=== PATIENT | female | born 1950 | race Caucasian/White ===

== ENCOUNTER 2019-10-20 16:29 | Inpatient (IN) | payer MEDICARE ==
[2019-10-20] MEDS ORDERED: ACETAMINOPHEN TAB 325 MG TAB PO PRN (16:58)
[2019-10-20] MEDS ORDERED: HYDROmorphone 1 MG/ML 1 ML SYRINGE IVP PRN (16:58)
[2019-10-20] MEDS ORDERED: NALOXONE 0.4 MG/ML 1 ML VIAL IV PRN (16:58)
--- NOTE | 2019-10-20 16:58 | ED ---
Fall HPI - General Chief Complaint: Fall Stated Complaint: Hip fracture Time Seen by Provider: 10/20/19 16:31 Source: patient, EMS Mode of arrival: EMS Limitations: physical limitation - History of Present Illness Initial Comments: 69-year-old female presents emergency department as a transfer from [facility] for fall, right IT fracture. Patient states that she had a mechanical fall. Patient said no prior orthopedic surgeries. Patient did have labs, x- rays, CT head, , urinalysis and Rosa placed. Patient found to have an INR of 9 was given vitamin K. Patient has no active signs of bleeding. Patient states that her pain is controlled as long as she is not moving. - Related Data Allergies Allergy/AdvReac Type Severity Reaction Status Date / Time alprazolam [From Xanax] Allergy Hallucinati Verified 10/20/19 16:34 ons Review of Systems ROS Statement: Those systems with pertinent positive or pertinent negative responses have been documented in the HPI. ROS Other: All systems not noted in ROS Statement are negative. Past Medical History Past Medical History: COPD, Diabetes Mellitus, Hyperlipidemia, Hypertension, Myocardial Infarction ([place]), Pneumonia History of Any Multi-Drug Resistant Organisms: None Reported Past Surgical History: Cholecystectomy, Heart Catheterization With Stent, Hysterectomy Past Psychological History: Anxiety Smoking Status: Former smoker Past Alcohol Use History: None Reported Past Drug Use History: None Reported General Exam Limitations: no limitations General appearance: alert, in no apparent distress Head exam: Present: atraumatic, normocephalic, normal inspection Neck exam: Present: normal inspection. Absent: tenderness, meningismus, lymphadenopathy Respiratory exam: Present: normal lung sounds bilaterally. Absent: respiratory distress, wheezes, rales, rhonchi, stridor Cardiovascular Exam: Present: regular rate, normal rhythm, normal heart sounds. Absent: systolic murmur, diastolic murmur, rubs, gallop, clicks Extremities exam: Present: other (Right leg is rotated, shortened, pulses equal bilaterally) Neurological exam: Present: alert, oriented X3, CN II-XII intact Course Vital Signs 10/20/19 16:35 Temperature 98.3 F Pulse Rate 82 Respiratory 16 Rate Blood Pressure 126/76 O2 Sat by Pulse 90 L Oximetry Medical Decision Making - Medical Decision Making I did contact orthopedics for admission who declines admission advises patient to be admitted to medicine secondary to INR. Case discussed with Harriet Piña for [facility] who accepts admission with consult to orthopedics Disposition Clinical Impression: Fall, Fracture of right hip, Warfarin-induced coagulopathy Disposition: ADMITTED IP TO THIS [facility] Condition: Fair Referrals: Brant Baca MD [Primary Care Provider] - 1-2 days
[2019-10-20 17:22] LABS: Prothrombin Time 83.6 sec (9.0-12.0)
[2019-10-20 17:42] LABS: INR 8.5 (<1.2)
[2019-10-20] MEDS: HYDROmorphone 0.5 MG/0.5 ML SYRINGE IVP PRN (18:46)
[2019-10-20] MEDS: ATORVASTATIN 40 MG TAB PO SCH (20:53)
[2019-10-20] MEDS: METOPROLOL SUCCINATE (ER) 25 MG TAB.ER.24H PO SCH (20:53)
[2019-10-20] MEDS: GABAPENTIN 300 MG CAP PO SCH (20:53)
[2019-10-20] MEDS: HYDROcodone/APAP 5-325MG 1 EACH TAB PO PRN (21:01)
[2019-10-20] MEDS: INSULIN ASPART (NovoLOG) 100 UNIT/ML VIAL SQ SCH (21:48)
[2019-10-20 21:58] LABS: Glucose,Whole Blood 95 mg/dL (75-99)
[2019-10-20] MEDS ORDERED: PHYTONADIONE ORAL 5 MG/5 ML ORAL.SYRG PO STA (23:28)
[2019-10-20] MEDS ORDERED: ALBUTEROL NEBULIZED 2.5 MG/3 ML INHALATION PRN (23:41)
[2019-10-21 01:23] LABS: ALT 27 U/L (9-52); AST 24 U/L (14-36); African American GFR (CKD) >90 (>60 ml/min/1.73 sqM); Albumin 3.6 g/dL (3.5-5.0); Alkaline Phosphatase 92 U/L (38-126); Anion Gap 7 mmol/L; Blood Urea Nitrogen 13 mg/dL (7-17); Calcium 8.7 mg/dL (8.4-10.2); Carbon Dioxide 26 mmol/L (22-30); Chloride 106 mmol/L (98-107); Glucose 98 mg/dL (74-99); Non-African American GFR(CKD) >90 (>60 ml/min/1.73 sqM); Potassium 3.5 mmol/L (3.5-5.1); Sodium 139 mmol/L (137-145); Total Bilirubin 0.4 mg/dL (0.2-1.3); Total Protein 6.1 g/dL (6.3-8.2)
[2019-10-21 03:54] LABS: Appearance,Urine Clear (Clear); Bilirubin,Urine Negative (Negative); Blood,Urine Moderate (Negative); Color,Urine Yellow; Glucose,Urine (UA) Negative (Negative); Ketones,Urine Negative (Negative); Leukocyte Esterase,Urine Trace (Negative); Mucus,Urine Occasional /hpf; Nitrite,Urine Negative (Negative); Protein,Urine 1+ (Negative); RBC,Urine 163 /hpf (0-5); Specific Gravity,Urine 1.031 (1.001-1.035); Squamous Epithelial Cell,Urine 1 /hpf (0-4); WBC,Urine 9 /hpf (0-5)
[2019-10-21] MEDS: LEVOTHYROXINE 125 MCG TAB PO SCH (05:04)
[2019-10-21] MEDS: HYDROcodone/APAP 5-325MG 1 EACH TAB PO PRN ×5 (05:04→23:45)
[2019-10-21 06:57] LABS: Anisocytosis Slight; Basophils % (A) 0 %; Eosinophils # (A) 0.1 k/uL (0-0.7); Eosinophils % (A) 1 %; HCT 43.6 % (34.0-46.0); HGB 14.4 gm/dL (11.4-16.0); Lymphocytes # (A) 0.4 k/uL (1.0-4.8); Lymphocytes % (A) 6 %; MCH 27.4 pg (25.0-35.0); MCV 83.2 fL (80.0-100.0); Monocytes # (A) 0.3 k/uL (0-1.0); Monocytes % (A) 5 %; Neutrophils # (A) 6.4 k/uL (1.3-7.7); Neutrophils % (A) 88 %; Platelet Count 202 k/uL (150-450); Poikilocytosis Slight; RBC 5.24 m/uL (3.80-5.40); RDW 16.2 % (11.5-15.5); WBC 7.3 k/uL (3.8-10.6)
[2019-10-21 07:01] LABS: INR 4.4 (<1.2); Prothrombin Time 42.3 sec (9.0-12.0)
[2019-10-21 07:14] LABS: Glucose,Whole Blood 96 mg/dL (75-99)
[2019-10-21] MEDS: INSULIN ASPART (NovoLOG) 100 UNIT/ML VIAL SQ SCH ×4 (08:04→20:56)
[2019-10-21] MEDS: FLUTICASONE 110 MCG INHALER INHALATION SCH ×2 (08:34→20:42)
[2019-10-21] MEDS ORDERED: FENOFIBRATE 160 MG TAB PO SCH (09:00)
[2019-10-21] MEDS ORDERED: AMIODARONE 200 MG TAB PO SCH (09:00)
--- NOTE | 2019-10-21 09:35 | HP ---
HISTORY AND PHYSICAL DATE OF SERVICE: 10/20/2019. CHIEF COMPLAINTS: Fall and right hip pain and hip fracture. HISTORY OF PRESENT ILLNESS: This 69-year-old woman with a past medical history of multiple medical problems including history of CHF, COPD, diabetes, hypertension, hyperlipidemia, history of DJD, history of pneumonia, history of coronary artery disease/stent/ history of anxiety being followed by Dr. Baca in the outpatient setting apparently had a mechanical fall. The patient does not remember the exact incidence. The patient did not lose any consciousness at home. The patient feels like the patient is doing much more than she should be doing and the patient went to [facility] in [place] with right intertrochanteric femoral fracture. The the INR was found to be 9. Vitamin K IV was given. The patient transferred to [facility] for further evaluation and treatment. INR is 8.5 at this time. There is no history of fever, rigors. No history of headache, loss of consciousness. No chest pain, palpitations, hematochezia or melena at this time. The patient said the patient is taking Coumadin, but the patient is not following up regularly with periodic INRs. PAST MEDICAL HISTORY: History of CHF, COPD, diabetes, hypertension, hyperlipidemia, history of DJD, history of pneumonia, history of cholecystectomy, history of coronary artery disease/stent. MEDICATIONS: Home medications: 1. Levothyroxine 250 mcg p.o. Wednesday, Wednesday, , Wednesday. 2. Metformin 500 mg p.o. b.i.d. 3. Coumadin 7.5, Wednesday, Wednesday and 5 mg Wednesday, Wednesday, Wednesday, Wednesday. 4. Nba-Dur 300 mg p.o. b.i.d. 5. Zoloft 100 mg p.o. daily. 6. Omeprazole 40 mg p.o. daily. 7. Toprol-XL 25 mg q.h.s. 8. Zestril 2.5 mg daily. 9. Levothyroxine 125 mcg Wednesday, Wednesday, Wednesday. 10.Lopid 600 mg p.o. b.i.d. 11.Neurontin 300 mg p.o. b.i.d. 12.Lasix 20 mg p.o. daily. 13.Flovent 1 puff b.i.d. 14.Lipitor 40 mg q.h.s. 15.Cordarone 200 mg p.o. daily. 16.ProAir 2 puffs q.6h p.r.n. ALLERGIES: XANAX. FAMILY HISTORY: History of CHF, diabetes, myocardial infarction in the family. SOCIAL HISTORY: Previous history of smoking. No history of current smoking or alcohol intake. REVIEW OF SYSTEMS: ENT: Diminished hearing. Diminished vision. CARDIOVASCULAR as mentioned. RESPIRATORY: As mentioned earlier. GI no nausea or vomiting. no dysuria or hematuria. Nervous system: No numbness or weakness. Allergy: No asthma or hayfever. MUSCULOSKELETAL as mentioned earlier. HEMATOLOGY/ONCOLOGY: No history of anemia. ENDOCRINE: Diabetes and hypothyroidism. CONSTITUTIONAL: As mentioned earlier. DERMATOLOGY: Negative. RHEUMATOLOGY negative. PSYCHIATRY as mentioned earlier. PHYSICAL EXAM: Patient is alert, oriented x3. The pulse is 77. Blood pressure 158/78, respirations 16, temperature 99.3, pulse ox 93% on 2 L. HEENT is conjunctivae normal. Oral mucosa moist. NECK is no jugular venous distention. No carotid bruit. No lymph node enlargement. CARDIOVASCULAR system: S1, S2 muffled. Ejection systolic murmur. No S3, no S4. RESPIRATORY: Breath sounds diminished in the bases. No rhonchi. No crackles. ABDOMEN: Soft, nontender. No mass palpable. LEGS status post right hip fracture. NERVOUS SYSTEM: Higher functions as mentioned earlier. Moves all 4 limbs except the right hip because of the pain. SKIN: No ulcers, rashes or bleeding. JOINTS: No active deforming arthropathy. LYMPHATICS: No lymph nodes palpable in the neck, axillae or groin. LABS: Awaited. ASSESSMENT: 1. Status post fall and right hip intertrochanteric fracture. 2. Coumadin coagulopathy. 3. History of chronic obstructive pulmonary disease. 4. History of congestive heart failure ejection fraction unknown. 5. History of coronary artery disease stent. 6. Diabetes type 2. 7. Hypertension. 8. Hyperlipidemia. 9. History of myocardial infarction. 10.History of degenerative joint disease. 11.History of pneumonia. 12.History of cholecystectomy. 13.History of anxiety. 14.Remote history of nicotine dependence. 15.Obesity with body mass index 37. 16.Gait dysfunction. 17.FULL CODE. RECOMMENDATIONS AND DISCUSSION: In this 69-year-old woman who presented with multiple medical issues, at this time, I recommend to continue the current medications, management and symptomatic treatment. Otherwise, at this time, pain medications. DVT prophylaxis. I would also recommend a 2D echo and baseline chest x-ray as for baseline, but the patient appears to be clinically stable and I would recommend vitamin K 5 mg more p.o. daily PT/INR and once the PT/INR less than 2 and acceptable to Orthopedic surgery patient will be cleared for surgery. I would also recommend Cardiology evaluation as well. Otherwise, prognosis guarded. Once again, the patient is stable at this time. There are no signs of any fluid overload clinically and we will continue to monitor. The rest of medications will be continued and DVT prophylaxis also suggested. A copy of dictation being forwarded to Dr. Baca who is the primary physician. BILLIE / HELENA: [id number] /
[2019-10-21] MEDS: LISINOPRIL 2.5 MG TAB PO SCH (10:03)
[2019-10-21] MEDS: FUROSEMIDE 20 MG TAB PO SCH (10:14)
[2019-10-21] MEDS: SERTRALINE 100 MG TAB PO SCH (10:14)
[2019-10-21] MEDS: PANTOPRAZOLE 40 MG TABLET PO SCH (10:14)
[2019-10-21] MEDS: GABAPENTIN 300 MG CAP PO SCH ×2 (10:14→20:55)
[2019-10-21] MEDS: metFORMIN 500 MG TAB PO SCH ×2 (10:14→20:55)
[2019-10-21] MEDS: THEOPHYLLINE 24 HOUR 300 MG CAP.ER.24H PO SCH (10:15)
--- NOTE | 2019-10-21 10:32 | XR ---
EXAMINATION TYPE: XR chest 1V portable DATE OF EXAM: 10/21/2019 COMPARISON: Chest x-ray 10/20/2019 HISTORY: Congestive heart failure TECHNIQUE: Single frontal view of the chest is obtained. FINDINGS: Enlarged cardiac silhouette, less pronounced from comparative chest CT. Mild pulmonary vas cular congestion. No sizable pleural effusion or pneumothorax. IMPRESSION: Enlarged cardiac silhouette and pulmonary vascular congestion, correlate for clinical si gns of fluid overload. Findings are improved from chest radiograph performed yesterday.
[2019-10-21] MEDS ORDERED: PHYTONADIONE ORAL 5 MG/5 ML ORAL.SYRG PO STA (10:44)
--- NOTE | 2019-10-21 11:07 | P.CNOR ---
History of Present Illness - [facility] Consult date: 10/21/19 Consult reason: fracture History of present illness: Patient is a 69-year-old female seen at bedside this morning consultation for her right hip fracture. She was admitted through the emergency department yesterday as a transfer from [facility] after suffering a fall at home resulting in a right IT fracture. Patient states that she had a mechanical fall. Patient said no prior orthopedic surgeries. Patient did have labs, x- rays, CT head, urinalysis and Rosa placed. Patient was found to have an INR of 9 and was given vitamin K. Patient has no active signs of bleeding. She states she continues to have pain at the right hip as expected but her pain is controlled as long as she is not moving. She denies radicular symptoms including numbness or tingling. She has no calf pain. Review of Systems All systems: negative Constitutional: Denies chills, Denies fever Eyes: denies blurred vision, denies pain Ears, nose, mouth and throat: Denies headache, Denies sore throat Cardiovascular: Denies chest pain, Denies shortness of breath Respiratory: Denies cough Gastrointestinal: Denies abdominal pain, Denies diarrhea, Denies nausea, Denies vomiting Genitourinary: Denies dysuria, Denies hematuria Musculoskeletal: Denies myalgias Integumentary: Denies pruritus, Denies rash Neurological: Denies numbness, Denies weakness Psychiatric: Denies anxiety, Denies depression Endocrine: Denies fatigue, Denies weight change Past Medical History Past Medical History: Heart Failure, COPD, Diabetes Mellitus, Hyperlipidemia, H ypertension, Myocardial Infarction ([place]), Osteoarthritis (OA), Pneumonia Additional Past Medical History / Comment(s): Pneumonia 4x Last Myocardial Infarction Date:: 2012 History of Any Multi-Drug Resistant Organisms: None Reported Past Surgical History: Cholecystectomy, Heart Catheterization With Stent, Hysterectomy Additional Past Surgical History / Comment(s): uterus removed, still has ovaries, cyst removed from r breast, colonoscopy, ovarian cyst removed Date of Last Stent Placement:: 2012 Past Psychological History: Anxiety Smoking Status: Former smoker Past Alcohol Use History: None Reported Past Drug Use History: None Reported - Past Family History Mother Family Medical History: Congestive Heart Failure (CHF), Diabetes Mellitus, Myocardial Infarction ([place]) Additional Family Medical History / Comment(s): at 62 from [place], had 7 children Father Family Medical History: Cancer Additional Family Medical History / Comment(s): bladder and prostate cancer, at 49 from cancer Medications and Allergies Home Medications Medication Instructions Recorded Confirmed Type Albuterol Sulfate [Proair Hfa] 2 puff INHALATION RT-Q6H PRN 10/20/19 10/20/19 History Amiodarone [Cordarone] 200 mg PO DAILY 10/20/19 10/20/19 History Atorvastatin [Lipitor] 40 mg PO HS 10/20/19 10/20/19 History Fluticasone Propionate [Flovent 1 puff INHALATION RT-BID 10/20/19 10/20/19 History Diskus] Furosemide [Lasix] 20 mg PO DAILY 10/20/19 10/20/19 History Gabapentin [Neurontin] 300 mg PO BID 10/20/19 10/20/19 History Gemfibrozil [Lopid] 600 mg PO BID 10/20/19 10/20/19 History Levothyroxine Sodium 125 mcg PO MOWEFR 10/20/19 10/20/19 History Levothyroxine Sodium 250 mcg PO SUTUTHSA 10/20/19 10/20/19 History Lisinopril [Zestril] 2.5 mg PO DAILY 10/20/19 10/20/19 History Metoprolol Succinate [Toprol XL] 25 mg PO HS 10/20/19 10/20/19 History Omeprazole 40 mg PO DAILY 10/20/19 10/20/19 History Sertraline [Zoloft] 100 mg PO DAILY 10/20/19 10/20/19 History Theophylline 12 Hour [Nba-Dur] 300 mg PO BID 10/20/19 10/20/19 History Warfarin [Coumadin] 5 mg PO SUMOWEFR 10/20/19 10/20/19 History Warfarin [Coumadin] 7.5 mg PO TUTHSA 10/20/19 10/20/19 History metFORMIN HCL [Glucophage] 500 mg PO BID 10/20/19 10/20/19 History Allergies Allergy/AdvReac Type Severity Reaction Status Date / Time alprazolam [From Xanax] AdvReac Hallucinati Verified 10/20/19 17:45 ons Physical Examination Inspection of the right lower extremity shows a shortened externally rotated ri ght leg. There are no open wounds. There is no erythema. There is no deformity of the knee, ankle or foot. Range of motion of the hip is not tested due to the fracture. Neurovascular status is grossly intact with motor and sensation throughout the right lower extremity. She has painless range of motion of the knee, ankle and foot. Calf is soft and nontender. There is 2+ dorsalis pedis pulse and less than 2 second capillary refill present. Results X-rays of the pelvis and right hip show right intertrochanteric femur fracture. There is mild displacement, rotation/shortening. - Labs Labs: Abnormal Lab Results - Last 24 Hours (Table) 10/20/19 10/21/19 10/21/19 Range/Units 16:59 00:33 03:00 RDW (11.5-15.5) % Lymphocytes # (1.0-4.8) k/uL PT 83.6 H (9.0-12.0) sec INR 8.5 H* (<1.2) Total Protein 6.1 L (6.3-8.2) g/dL Urine Protein 1+ H (Negative) Urine Blood Moderate H (Negative) Ur Leukocyte Esterase Trace H (Negative) Urine RBC 163 H (0-5) /hpf Urine WBC 9 H (0-5) /hpf Urine Mucus Occasional H (None) /hpf 10/21/19 10/21/19 Range/Units 06:19 06:19 RDW 16.2 H (11.5-15.5) % Lymphocytes # 0.4 L (1.0-4.8) k/uL PT 42.3 H (9.0-12.0) sec INR 4.4 H (<1.2) Total Protein (6.3-8.2) g/dL Urine Protein (Negative) Urine Blood (Negative) Ur Leukocyte Esterase (Negative) Urine RBC (0-5) /hpf Urine WBC (0-5) /hpf Urine Mucus (None) /hpf H & H 10/21/19 Range/Units 06:19 Hgb 14.4 (11.4-16.0) gm/dL Hct 43.6 (34.0-46.0) % Coagulation 10/20/19 10/21/19 Range/Units 16:59 06:19 INR 8.5 H* 4.4 H (<1.2) Result Diagrams: 10/21/19 06:19 10/21/19 00:33 - Diagnostic results Hip x-ray: image reviewed Assessment and Plan (1) Fracture of right hip Narrative/Plan: Patient has multiple comorbidities including diabetes, CHF, CAD and coagulopathy. Her INR is 4.4 today. Plan will be to proceed with surgical intervention including a gamma nail for right intertrochanteric femur fracture. We will proceed when cleared by medicine and cardiology and her INR is at acceptable levels hopefully in the next 1-2 days. Continue pain management, medical management and DVT prophylaxis in the meantime. Current Visit: Yes Status: Acute Priority: Medium Code(s): S72.001A - FRACTURE OF UNSP PART OF NECK OF RIGHT FEMUR, INIT SNOMED Code(s): 586233549 Time with Patient: Less than 30
[2019-10-21 11:23] LABS: Glucose,Whole Blood 87 mg/dL (75-99)
[2019-10-21 12:50] LABS: Cholesterol 124 mg/dL (<200); HDL Cholesterol 43 mg/dL (40-60); LDL Cholesterol,Calculated 68 mg/dL (0-99); Triglycerides 65 mg/dL (<150)
--- NOTE | 2019-10-21 14:08 | ECHOF ---
Referral Reason:chf MEASUREMENTS -------- HEIGHT: 165.1 cm WEIGHT: 103.9 kg BP: IVSd: 1.2 cm (0.6 - 1.1) LVIDd: 5.7 cm (3.9 - 5.3) LVPWd: 1.5 cm (0.6 - 1.1) IVSs: 1.4 cm LVIDs: 4.7 cm LVPWs: 1.6 cm LA Diam: 3.6 cm (2.7 - 3.8) LAESV Index (A-L): 45.11 ml/m MV EXCURSION: 20.607 mm (> 18.000) MV EF SLOPE: 53 mm/s (70 - 150) EPSS: 0.6 cm MV E Ignacio: 0.84 m/s MV DecT: 225 ms MV A Ignacio: 0.53 m/s MV E/A Ratio: 1.59 RAP: 5.00 mmHg RVSP: 67.94 mmHg FINDINGS -------- Sinus rhythm. This was a techncally difficult study with suboptimal views, , Lumason utilized for enhancement of im ages. The left ventricular size is normal. There is mild concentric left ventricular hypertrophy. Overa ll left ventricular systolic function is mild-moderately impaired with, an EF between 40 - 45 %. Ba muna inferior LV wall motion is hypokinetic. Basal inferoseptal LV wall motion is hypokinetic. M id inferior LV wall motion is hypokinetic. Apical inferior LV wall motion is hypokinetic. The right ventricle is normal in size. LA is severely dilated >40 ml/m2 The right atrial size is normal. 5.0mg OF Lumason UTLIZED: 2 OR MORE WALL SEGMENTS NOT VISUALIZED. There is mild aortic valve sclerosis. There is no evidence of aortic regurgitation. Mild mitral annular calcification present. Moderate mitral regurgitation is present. [id number] tricuspid regurgitation present. There is moderate to severe pulmonary hypertensio n. The right ventricular systolic pressure, as measured by Doppler, is 67.94mmHg. Trace/mild (physiologic) pulmonic regurgitation. The aortic root size is normal. There is no pericardial effusion. CONCLUSIONS -------- 1. Sinus rhythm. 2. This was a techncally difficult study with suboptimal views, , Lumason utilized for enhancement of images. 3. The left ventricular size is normal. 4. There is mild concentric left ventricular hypertrophy. 5. Overall left ventricular systolic function is mild-moderately impaired with, an EF between 40 - 45 %. 6. Basal inferior LV wall motion is hypokinetic. 7. Basal inferoseptal LV wall motion is hypokinetic. 8. Mid inferior LV wall motion is hypokinetic. 9. Apical inferior LV wall motion is hypokinetic. 10. LA is severely dilated >40 ml/m2 11. 5.0mg OF Lumason UTLIZED: 2 OR MORE WALL SEGMENTS NOT VISUALIZED. 12. There is mild aortic valve sclerosis. 13. Mild mitral annular calcification present. 14. Moderate mitral regurgitation is present. 15. Dykf-it-ivriwfyi tricuspid regurgitation present. 16. There is moderate to severe pulmonary hypertension. 17. Trace/mild (physiologic) pulmonic regurgitation. 18. The aortic root size is normal. 19. There is no pericardial effusion. INTERIOR DESIGNER: Valerie Gray RDCS
[2019-10-21] MEDS ORDERED: FUROSEMIDE 10 MG/ML 4 ML VIAL IV STA (15:04)
[2019-10-21 17:13] LABS: Glucose,Whole Blood 110 mg/dL (75-99)
[2019-10-21] MEDS: HYDROmorphone 0.5 MG/0.5 ML SYRINGE IVP PRN (18:31)
--- NOTE | 2019-10-21 19:08 | PN ---
PROGRESS NOTE DATE OF SERVICE: 10/21/2019 This 69-year-old woman is admitted with right hip fracture also had Coumadin coagulopathy. After vitamin K today the INR is still elevated up to 4.4. Vitamin K of 5 mg has been recommended. The patient also has evidence of CHF. Cardiology following the patient also. Patient also has some microscopic hematuria. Orthopedic surgery is following the patient closely and tentatively planning surgery once the patient is stabilized. A chest x-ray showed no evidence of any signs of mild fluid overload at this time. PAST MEDICAL HISTORY: Reviewed. REVIEW OF SYSTEM: Cardiovascular as mentioned earlier. RESPIRATORY: As mentioned earlier. GI no nausea or vomiting. : No dysuria. CENTRAL NERVOUS SYSTEM: No numbness or weakness. CURRENT MEDICATIONS: Reviewed and include: 1. Tylenol 650 q.6h p.r.n. 2. [place] 5 mg q.4 p.r.n. 3. Aspirin 81 mg. 4. Lipitor. 5. Flomax. 6. Lasix 20 mg p.o. daily. 7. Neurontin 300 mg p.o. t.i.d. 8. Dilaudid. 9. NovoLog. 10.Synthroid. 11.Zestril. 12.Glucophage. 13.Toprol-XL. 14.Protonix. 15.Zoloft. 16.Nba-24. PHYSICAL EXAM: Patient is alert, oriented x3. Pulse 70. Blood pressure 105/60, respirations 16, temperature 98.7, and pulse ox 98% on 3 L. HEENT: Conjunctivae normal. Oral mucosa moist. NECK is no jugular venous distention. No carotid bruit. No lymph node enlargement. Cardiovascular system: S1, S2 muffled. RESPIRATORY: Breath sounds diminished in the bases. A few scattered rhonchi. No crackles. ABDOMEN: Soft, nontender. No mass palpable. LEGS status post hip fracture. NERVOUS SYSTEM: No focal deficits. LABS: At this time shows WBC 7.2, hemoglobin 14.4, and INR 4.4. BMP noted. UA noted. Lipids are normal. ASSESSMENT: 1. Status post fall and right hip intertrochanteric fracture. 2. Coumadin coagulopathy. 3. Possible congestive heart failure, acute exacerbation, minimal. 4. History of chronic obstructive pulmonary disease. 5. History of coronary artery disease/stent. 6. Diabetes mellitus type 2. 7. Hypertension. 8. Hyperlipidemia. 9. History of myocardial infarction. 10.History of degenerative joint disease. 11.History of pneumonia. 12.History of cholecystectomy. 13.History of anxiety. 14.Remote history of nicotine dependence. 15.Obesity with body mass index of 37. 16.Gait dysfunction. 17.FULL CODE. RECOMMENDATIONS AND DISCUSSION: I recommend to continue current medications, symptomatic treatment. Otherwise, I would recommend a dose of intravenous Lasix and continue to monitor. Otherwise, 2D echo has been ordered. Cardiology consultation has been sought. Guarded prognosis because of multiple complex medical issues, but however the patient is stable for surgery and medically cleared. Cardiology following the patient closely. Further recommendations to follow. MMODL / IJN: [id number] /
--- NOTE | 2019-10-21 20:29 | CONS ---
CONSULTATION Mrs. Ramirez is a 69-year-old female, patient of Dr. Elizondo, who fell and fractured her hip. She is scheduled to undergo surgical intervention. Cardiology consultation was requested for preoperative evaluation. The patient has a known history of coronary artery disease status post stenting 6 years ago down in [place]. 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 She is on chronic anticoagulation for what appears to be a DVT, although the patient is very vague about her history. She denies any symptoms of chest pain. She is active at home without any difficulty. Has no dyspnea on exertion. No dizziness. No palpitation. No syncope. No PND, orthopnea or significant peripheral edema. She has stopped smoking 6 years ago at the time of her event. Her coronary risk factors are remarkable with history of diabetes, hypertension, and hyperlipidemia. She is on amiodarone and it is unclear to me if that was down because of arrhythmia. REVIEW OF SYSTEMS: RESPIRATORY SYSTEM: She denies any recent wheezing or cough. No history of documented obstructive lung disease. GI SYSTEM: No recent GI bleeding. No peptic ulcer disease. SYSTEM: No dysuria or hematuria. NERVOUS SYSTEM: No stroke or seizure. PHYSICAL EXAMINATION: She is a 69-year-old female, alert, oriented, in no apparent distress. Blood pressure 105/60 with a heart rate in the 70s. HEAD: Normocephalic. EYES: Sclerae anicteric. NECK: Good carotid upstroke. No bruit or jugular venous distention. LUNGS: Clear to auscultation. HEART: Regular rhythm S1, S2. No S3. No rub with a systolic murmur. ABDOMEN: Soft, nontender. Positive bowel sounds. No organomegaly. EXTREMITIES: With evidence of rotation of the right lower extremity. No edema on the left side. LAB DATA: On presentation her INR was 8.5, hemoglobin of 14.4, BUN and creatinine 13 and 0.57. NT proBNP of 1110. Her INR today is 4.4. Her EKG reveals sinus mechanism with evidence of inferolateral wall myocardial infarction. IMPRESSION: 1. Status post fall and fracture of the hip with no syncopal episode. 2. History of coronary artery disease status post stenting 6 years ago with no evidence to suggest recurrent angina pectoris. 3. Coagulopathy. Patient is anticoagulated, unclear etiology. It is unclear to me if it is atrial fibrillation or DVT. 4. History of hypertension. 5. Hyperlipidemia. 6. Diabetes mellitus. 7. Prior history of smoking. RECOMMENDATION: From the cardiac standpoint, the patient has no evidence of angina pectoris or congestive heart failure. She is stable. I see no contraindication to upcoming surgical intervention. Her Coumadin is on hold. I will check her lipid profile and stop her fenofibrate. She will undergo an echocardiogram with Doppler. The indication for anticoagulation will need to be re-evaluated. I will check her thyroid function test and I will stop her amiodarone at this time. Thank you for this consult. We will follow with you. MMODL / IJN: [id number] /
[2019-10-21] MEDS: ATORVASTATIN 40 MG TAB PO SCH (20:55)
[2019-10-21] MEDS: METOPROLOL SUCCINATE (ER) 25 MG TAB.ER.24H PO SCH (20:55)
[2019-10-21 21:24] LABS: Glucose,Whole Blood 99 mg/dL (75-99)
[2019-10-22] MEDS: HYDROmorphone 0.5 MG/0.5 ML SYRINGE IVP PRN (04:21)
[2019-10-22] MEDS: LEVOTHYROXINE 125 MCG TAB PO SCH (05:22)
[2019-10-22 06:45] LABS: INR 1.2 (<1.2); Prothrombin Time 12.1 sec (9.0-12.0)
[2019-10-22] MEDS: INSULIN ASPART (NovoLOG) 100 UNIT/ML VIAL SQ SCH ×4 (07:28→20:03)
[2019-10-22] MEDS: FLUTICASONE 110 MCG INHALER INHALATION SCH ×2 (08:08→20:55)
[2019-10-22] MEDS: FUROSEMIDE 20 MG TAB PO SCH (08:40)
[2019-10-22] MEDS: metFORMIN 500 MG TAB PO SCH ×2 (08:41→20:03)
[2019-10-22] MEDS: PANTOPRAZOLE 40 MG TABLET PO SCH (08:41)
[2019-10-22] MEDS: SERTRALINE 100 MG TAB PO SCH (08:41)
[2019-10-22] MEDS: LISINOPRIL 2.5 MG TAB PO SCH (08:41)
[2019-10-22] MEDS: GABAPENTIN 300 MG CAP PO SCH ×2 (08:41→20:03)
[2019-10-22] MEDS: ASPIRIN 81 MG PO SCH (08:41)
[2019-10-22] MEDS: THEOPHYLLINE 24 HOUR 300 MG CAP.ER.24H PO SCH (08:41)
[2019-10-22 12:09] LABS: Glucose,Whole Blood 91 mg/dL (75-99)
--- NOTE | 2019-10-22 12:37 | PN ---
PROGRESS NOTE Mrs. Ramirez is a 69-year-old female with known history of coronary artery disease who presented with a fall and fractured hip. She is scheduled to undergo surgical intervention tomorrow. She denies any chest pain. This morning her breathing has been stable. She denies any dizziness or palpitation. She denies any nausea. She is status post stenting 6 years ago and there is a possibility that she has arrhythmia, although the patient is quite vague about the etiology. She has been in sinus mechanism yet she was on amiodarone. MEDICATION: At this time include aspirin 81 mg daily, Lipitor 40 mg daily, furosemide 20 mg daily, lisinopril 2.5 mg daily, metoprolol succinate 25 mg daily, metformin. PHYSICAL EXAMINATION: Blood pressure 117/70 with a heart rate in the 60s. LUNGS: Clear. HEART: Regular rhythm S1, S2. No S3 with systolic murmur. No diastolic murmur, no rub. ABDOMEN: Soft, nontender. EXTREMITIES: No edema. An echocardiogram performed yesterday revealed ejection fraction 40% to 45% with segmental wall motion abnormality involving the inferior wall consistent with prior inferior myocardial infarction. LAB DATA: Revealed an INR of 1.2. IMPRESSION: 1. Status post fall with fractured hip scheduled for surgical intervention. 2. History of coronary artery disease status post stenting. 3. Ischemic cardiomyopathy. 4. Hypertension. 5. Hyperlipidemia. 6. Diabetes mellitus. 7. Questionable atrial fibrillation, patient was anticoagulated and the reasoning is unclear. RECOMMENDATION: We will continue present therapy. She should be stable to proceed with surgical intervention tomorrow. We will try to obtain the prior workup from Dr. Aquino who is her hot bread baker to see the indication for the anticoagulation and the indication to resume it. MMODL / IJN: [id number] /
[2019-10-22] MEDS: HYDROcodone/APAP 5-325MG 1 EACH TAB PO PRN (16:41)
--- NOTE | 2019-10-22 16:51 | XR ---
EXAMINATION TYPE: XR chest 1V portable DATE OF EXAM: 10/22/2019 COMPARISON: Prior chest x-ray 10/21/2019 HISTORY: Congestive heart failure TECHNIQUE: Single frontal view of the chest is obtained. FINDINGS: Findings similar to prior exam. Heart is enlarged, patient is rotated in technique is apic al lordotic. Central vascularity and interstitium appear prominently. No evident pneumothorax or pleu ral effusion. Bones are stable. IMPRESSION: There may be a component of pulmonary venous hypertension and interstitial edema, findin gs are similar to prior exam.
[2019-10-22 17:10] LABS: Glucose,Whole Blood 85 mg/dL (75-99)
--- NOTE | 2019-10-22 18:32 | P.PN ---
Subjective Progress Note Date: 10/22/19 Principal diagnosis: Right IT hip fracture Patient is pleasant 69 year old female seen at bedside this morning. We are following her for a right IT hip fracture. Her INR has come down and she has been tentatively been cleared for surgery. She continues to have hip pain as expected. She has no new complaints. No new numbness or tingling. No calf pain. Objective - Vital Signs Vital signs: Vital Signs Temp 98.2 F 10/22/19 15:00 Pulse 65 10/22/19 15:00 Resp 18 10/22/19 15:00 BP 118/75 10/22/19 15:00 Pulse Ox 94 L 10/22/19 15:00 Intake & Output 10/21/19 10/22/19 10/22/19 18:59 06:59 18:59 Intake Total 400 100 250 Output Total 750 850 400 Balance -350 -750 -150 Intake: Oral 400 100 250 Output: Urine 750 850 400 Other: Voiding Method Indwelling Catheter Indwelling Catheter Indwelling Catheter - Exam Right hip and leg show a shortened externally rotated lower extremity. Hip ROM not tested. Neurovascular status grossly intact throughout lower extremity with motor and sensation. calf is SNT. 2+ DP pulse and less than 2 sec cap refill present. - Constitutional General appearance: Present: no acute distress - Labs CBC & Chem 7: 10/21/19 06:19 10/21/19 00:33 Labs: Abnormal Lab Results - Last 24 Hours (Table) 10/22/19 Range/Units 06:15 PT 12.1 H (9.0-12.0) sec INR 1.2 H (<1.2) Assessment and Plan (1) Fracture of right hip Narrative/Plan: Patient has been cleared for surgery and INR is improved to 1.2. Plan will be to proceed with surgical intervention including a gamma nail for right intertrochanteric femur fracture tomorrow, Wednesday afternoon. Continue pain management, medical management and DVT prophylaxis in the meantime. SHe is to be NPO after midnight. Procedure consent has been ordered Current Visit: Yes Status: Acute Priority: Medium Code(s): S72.001A - FRACTURE OF UNSP PART OF NECK OF RIGHT FEMUR, INIT SNOMED Code(s): 836990978 Time with Patient: Less than 30
--- NOTE | 2019-10-22 19:01 | PN ---
PROGRESS NOTE DATE OF SERVICE: 10/22/2019 This 69-year-old woman with a past medical history of multiple medical problems, admitted with a fall and right femur fracture. The patient is slated to have surgery tomorrow. The patient had Coumadin coagulopathy which is reversed at this time. No chest pain. No palpitations. No fever. The patient has no active CHF. EXAM: Alert and oriented x3. The pulse is 65, blood pressure 118/70, respiration 18, temp 98.2, pulse ox 94% on 5 L. HEENT: Conjunctivae normal. Oral mucosa moist. NECK: No jugular venous distention. No lymph node enlargement. CARDIOVASCULAR: S1, S2. RESPIRATORY: Diminished breath sounds at the bases. No rhonchi, no crackles. ABDOMEN: Soft, nontender. No mass palpable. LEGS: Status post fracture. NERVOUS SYSTEM: No focal deficits. LABS: At this time shows INR is 1.2. Other labs noted. ASSESSMENT: 1. Status post fall and right hip intertrochanteric fracture. 2. Coumadin coagulopathy, improved. 3. Congestive heart failure, acute exacerbation, minimal. 4. Chronic obstructive pulmonary disease. 5. History of coronary artery disease, stent. 6. Diabetes mellitus type 2. 7. Hypertension. 8. Hyperlipidemia. 9. History of myocardial infarction. 10.History of degenerative joint disease. 11.History of pneumonia. 12.History of cholecystectomy. 13.History of anxiety. 14.Remote history of nicotine dependence. 15.Obesity with body mass index of 37. 16.Gait dysfunction. 17.FULL CODE. RECOMMENDATIONS AND DISCUSSION: Recommend to continue current medications, continue symptomatic treatment. Otherwise, at this time I recommend repeat chest x-ray. Continue the rest of medications. The patient is cleared for surgery. Further recommendations to follow. MMODL / IJN: [id number] /
[2019-10-22] MEDS: ATORVASTATIN 40 MG TAB PO SCH (20:03)
[2019-10-22] MEDS: METOPROLOL SUCCINATE (ER) 25 MG TAB.ER.24H PO SCH (20:03)
[2019-10-22 20:20] LABS: Glucose,Whole Blood 86 mg/dL (75-99)
[2019-10-23] MEDS: HYDROcodone/APAP 5-325MG 1 EACH TAB PO PRN (05:42)
[2019-10-23] MEDS: LEVOTHYROXINE 125 MCG TAB PO SCH ×2 (05:44→19:51)
[2019-10-23 07:19] LABS: Glucose,Whole Blood 99 mg/dL (75-99)
[2019-10-23] MEDS: FLUTICASONE 110 MCG INHALER INHALATION SCH ×2 (07:38→20:47)
[2019-10-23 07:46] LABS: INR 1.1 (<1.2)
[2019-10-23 07:47] LABS: Prothrombin Time 11.4 sec (9.0-12.0)
[2019-10-23] MEDS: INSULIN ASPART (NovoLOG) 100 UNIT/ML VIAL SQ SCH ×4 (08:53→19:52)
[2019-10-23] MEDS: THEOPHYLLINE 24 HOUR 300 MG CAP.ER.24H PO SCH (09:28)
[2019-10-23] MEDS: GABAPENTIN 300 MG CAP PO SCH ×2 (09:28→19:50)
[2019-10-23] MEDS: SERTRALINE 100 MG TAB PO SCH (09:28)
[2019-10-23] MEDS: FUROSEMIDE 20 MG TAB PO SCH (09:28)
[2019-10-23] MEDS: LISINOPRIL 2.5 MG TAB PO SCH (09:29)
[2019-10-23] MEDS: metFORMIN 500 MG TAB PO SCH ×2 (09:29→19:49)
[2019-10-23] MEDS: ASPIRIN 81 MG PO SCH (09:29)
[2019-10-23] MEDS: PANTOPRAZOLE 40 MG TABLET PO SCH (09:29)
--- NOTE | 2019-10-23 09:49 | CDI ---
Documentation Clarification Form Date: 10/23/2019 9:43:50 AM From: Regi Gunter RN, CCDS Phone: [phone] Admit Date: 10/20/2019 5:07:00 PM Patient Name: Glenis Ramirez Visit Number: [id number] ATTENTION: The Clinical Documentation Specialists (CDI) and [facility] Coding Staff appreciate your assistance in clarifying documentation. Please respond to the clarification below the line at the bottom and electronically sign. The CDI & [facility] Coding staff will review the response and follow-up if needed. Please note: Queries are made part of the Legal Health Record. If you have any questions, please contact the author of this message via ITS. Dr. Any Rosales CHF is documented in your H&P and Progress Notes and requires further specificity. History/Risk Factors: CHF, possible atrial fib unsure as to why patient is being anticoagulated, DM2 Clinical Indicators: 10/22 Attending Progress Note: Congestive heart failure, acute exacerbation, minimal 10/22 Cardiology progress Note: Ischemic cardiomyopathy VS/Pulse OX: Temp 98.3, hr 82, RR 16, B/P 126/76, po2 90% 2l NC BNP: 1110 10/21 Echocardiogram Results: EF 40-45%, LA is severely dilated 10/22 Chest X Ray: "There may be a component of pulmonary venous hypertension and interstitial edema; findings are similar to prior exam." Treatment: Amioradarone 200 mg PO QD Lasix 20 mg PO QD Lasix 40 mg IVP x 1 dose 10/21 In your professional opinion, can you please clarify the acuity and type of CHF if known? Systolic Heart Failure: Acute Chronic Acute on Chronic Systolic & Diastolic Heart Failure: Acute Chronic Acute on Chronic Heart Failure Unable to Determine Other, please specify (Last Revision: February 2018) Systolic Heart Failure: Acute on Chronic MTDD
[2019-10-23 11:37] LABS: T4, Free (Free Thyroxine) 2.48 ng/dL (0.78-2.19)
[2019-10-23 12:16] LABS: Glucose,Whole Blood 91 mg/dL (75-99)
[2019-10-23] MEDS: FUROSEMIDE 10 MG/ML 4 ML VIAL IV SCH (13:25)
--- NOTE | 2019-10-23 13:55 | P.PN ---
Subjective Progress Note Date: 10/23/19 Principal diagnosis: This is a 69-year-old female who was lying in bed in no acute distress with no acute overnight issues. Patient was recently admitted for a fall and right femu r fracture and is being closely monitored. Patient is scheduled to have surgery this afternoon. Current INR is 1.1. Currently patient is requiring oxygen via nasal cannula at 4-5 L per nursing staff. Patient denies any chest pain, shortness of breath, or palpitations. Patient states that she has to use oxygen sometimes but is unsure of how much. Patient states that she does have a history of heart failure. IV Lasix will be ordered. Yesterday's chest x-ray shows that there may be a component of pulmonary venous hypertension and interstitial edema which is similar to previous x-ray. Will continue to monitor closely. REVIEW OF SYSTEMS: ENT: Reports diminished vision and hearing. CARDIOVASCULAR: No reports of chest pain or palpitations RESPIRATORY: No reports her shortness of breath or cough GI: No nausea, vomiting or diarrhea. : No dysuria or retention. NERVOUS SYSTEM: Reports generalized weakness. HEMATOLOGY/ONCOLOGY: No history of anemia. ENDOCRINE: Reports diabetes and hypothyroidism. CONSTITUTIONAL: As mentioned earlier. DERMATOLOGY: Negative. PSYCHIATRY: Cooperative and nonsuicidal Active Medications Acetaminophen (Tylenol Tab) 650 mg PO Q6HR PRN PRN Reason: Mild Pain or Fever > 100.5 Hydrocodone Bitart/Acetaminophen ([place] 5-325) 1 each PO Q4HR PRN PRN Reason: Moderate Pain Last Admin: 10/23/19 05:42 Dose: 1 each Documented by: Albuterol Sulfate (Ventolin Nebulized) 2 mg INHALATION RT-Q6H PRN PRN Reason: Shortness Of Breath Aspirin (Aspirin) 81 mg PO DAILY [facility] Last Admin: 10/23/19 09:29 Dose: 81 mg Documented by: Atorvastatin Calcium (Lipitor) 40 mg PO HS [facility] Last Admin: 10/22/19 20:03 Dose: 40 mg Documented by: Fluticasone Propionate (Flovent 110 Mcg Inhaler) 2 puff INHALATION RT-BID [facility] Last Admin: 10/23/19 07:38 Dose: 2 puff Documented by: Furosemide (Lasix) 40 mg IV DAILY [facility] Gabapentin (Neurontin) 300 mg PO BID [facility] Last Admin: 10/23/19 09:28 Dose: 300 mg Documented by: Hydromorphone HCl (Dilaudid) 0.5 mg IVP Q3HR PRN PRN Reason: Moderate Pain Last Admin: 10/22/19 04:21 Dose: 0.5 mg Documented by: Hydromorphone HCl (Dilaudid) 1 mg IVP Q3HR PRN PRN Reason: Severe Pain Insulin Aspart (Novolog) 0 unit SQ ACHS [facility]; Protocol Last Admin: 10/23/19 08:53 Dose: Not Given Documented by: Levothyroxine Sodium (Synthroid) 250 mcg PO SuTuThSa@0630 [facility] Last Admin: 10/22/19 05:22 Dose: 250 mcg Documented by: Levothyroxine Sodium (Synthroid) 125 mcg PO MoWeFr@30 [facility] Last Admin: 10/23/19 05:44 Dose: Not Given Documented by: Lisinopril (Zestril) 2.5 mg PO DAILY [facility] Last Admin: 10/23/19 09:29 Dose: 2.5 mg Documented by: Metformin HCl (Glucophage) 500 mg PO BID [facility] Last Admin: 10/23/19 09:29 Dose: Not Given Documented by: Metoprolol Succinate (Toprol Xl) 25 mg PO [facility] Last Admin: 10/22/19 20:03 Dose: 25 mg Documented by: Naloxone HCl (Narcan) 0.2 mg IV Q2M PRN PRN Reason: Opioid Reversal Pantoprazole Sodium (Protonix) 40 mg PO DAILY@0730 [facility] Last Admin: 10/23/19 09:29 Dose: 40 mg Documented by: Sertraline HCl (Zoloft) 100 mg PO DAILY [facility] Last Admin: 10/23/19 09:28 Dose: 100 mg Documented by: Theophylline (Nba-24) 600 mg PO DAILY [facility] Last Admin: 10/23/19 09:28 Dose: 600 mg Documented by: Objective - Vital Signs Vital signs: Vital Signs Temp 98.4 F 10/23/19 07:00 Pulse 77 10/23/19 08:00 Resp 14 10/23/19 08:00 BP 121/76 10/23/19 07:00 Pulse Ox 94 L 10/23/19 07:00 Intake & Output 10/22/19 10/23/19 10/23/19 18:59 06:59 18:59 Intake Total 250 Output Total 400 550 Balance -150 -550 Intake: Oral 250 Output: Urine 400 550 Other: Voiding Method Indwelling Catheter Indwelling Catheter Indwelling Catheter # Bowel Movements 2 - Exam Gen: This is a 69-year-old female lying in bed in no acute distress. Temp is 98.4F, pulse is 77, respirations are 14, blood pressure is 121/76, oxygen saturation is 94% on 5 L via nasal cannula. HEENT: Head is atraumatic, normocephalic. Pupils equal, round. Sclerae is anicteric. NECK: Supple. No JVD. No lymphadenopathy. No thyromegaly. LUNGS: Diminished breath sounds at the bases with no wheezes or rhonchi noted. No intercostal retractions. HEART: S1, S2 are muffled ABDOMEN: Soft. Bowel sounds are present. No masses. No tenderness. EXTREMITIES: No pedal edema. No calf tenderness. Right hip tenderness upon palpation NEUROLOGICAL: Patient is awake, alert and oriented x3. Cranial nerves 2 through 12 are grossly intact. - Labs CBC & Chem 7: 10/21/19 06:19 10/21/19 00:33 Labs: Abnormal Lab Results - Last 24 Hours (Table) 10/23/19 Range/Units 06:52 TSH 0.242 L (0.465-4.680) mIU/L Free T4 2.48 H (0.78-2.19) ng/dL Assessment and Plan Assessment: Status post fall and right hip intertrochanteric fracture Coumadin coagulopathy, improved Congestive heart failure, acute exacerbation, acute on chronic systolic heart failure, minimal Chronic obstructive pulmonary disease History of coronary artery disease, stent Diabetes mellitus type 2 Hypertension Hyperlipidemia and line history of myocardial infarction history of degenerative joint disease History of pneumonia History of cholecystectomy History of anxiety Remote history of nicotine dependence Obesity with body mass index of 37 Gait dysfunction Full code Recommendations and discussion: Recommend to continue current medications, management, and symptomatic treatment. Patient will be given a dose of IV Lasix 40 mg and will continue daily at this time. Discussed with the nursing staff about weaning the patient from oxygen as she is currently requiring 5 L via nasal cannula and normally does not wear any oxygen at home. Will continue to monitor closely. Will continue to follow closely with surgery. Patient is to have right hip surgery today. Further recommendations to follow. Case management and social work are following for discharge plans to rehab facility for PT/OT therapy upon discharge.
[2019-10-23] MEDS ORDERED: ONDANSETRON 4 MG/2 ML VIAL IVP ONE (14:19)
[2019-10-23] MEDS ORDERED: LIDOCAINE 1% 20 ML VIAL (10MG/ML) FOR IV START INTRADERMA PRN (14:19)
[2019-10-23] MEDS ORDERED: DEXAMETHASONE SOD PHOSPHATE 10 MG/ML 1 ML VIAL IV ONE (14:19)
--- NOTE | 2019-10-23 14:46 | P.PN ---
Subjective Progress Note Date: 10/23/19 Principal diagnosis: Right IT hip fracture Patient is pleasant 69 year old female seen at bedside this morning. We are following her for a right IT hip fracture. Her INR has come down and she has been been cleared for surgery. She continues to have hip pain as expected. She has no new complaints. No new numbness or tingling. No calf pain. Objective - Vital Signs Vital signs: Vital Signs Temp 98.4 F 10/23/19 07:00 Pulse 77 10/23/19 08:00 Resp 14 10/23/19 08:00 BP 121/76 10/23/19 07:00 Pulse Ox 94 L 10/23/19 07:00 Intake & Output 10/22/19 10/23/19 10/23/19 18:59 06:59 18:59 Intake Total 250 Output Total 400 550 Balance -150 -550 Intake: Oral 250 Output: Urine 400 550 Other: Voiding Method Indwelling Catheter Indwelling Catheter Indwelling Catheter # Bowel Movements 2 - Exam Right hip and leg show a shortened externally rotated lower extremity. Hip ROM not tested. Neurovascular status grossly intact throughout lower extremity with motor and sensation. calf is SNT. 2+ DP pulse and less than 2 sec cap refill present. - Constitutional General appearance: Present: no acute distress - Labs CBC & Chem 7: 10/21/19 06:19 10/21/19 00:33 Labs: Abnormal Lab Results - Last 24 Hours (Table) 10/23/19 Range/Units 06:52 TSH 0.242 L (0.465-4.680) mIU/L Free T4 2.48 H (0.78-2.19) ng/dL Assessment and Plan (1) Fracture of right hip Narrative/Plan: Patient has been cleared for surgery and INR is improved. Surgery time has changed and plan is to proceed with surgical intervention including a gamma nail for right intertrochanteric femur fracture tomorrow, Wednesday around 11 am. Continue pain management, medical management and DVT prophylaxis. She is to be NPO after midnight. Procedure consent has been ordered. She will need placement post op Current Visit: Yes Status: Acute Priority: Medium Code(s): S72.001A - FRACTURE OF UNSP PART OF NECK OF RIGHT FEMUR, INIT SNOMED Code(s): 541999472 Time with Patient: Less than 30
[2019-10-23 17:07] LABS: Glucose,Whole Blood 100 mg/dL (75-99)
[2019-10-23] MEDS: LACTATED RINGERS 1,000 ML IV SCH (19:44)
[2019-10-23] MEDS: METOPROLOL SUCCINATE (ER) 25 MG TAB.ER.24H PO SCH (19:49)
[2019-10-23] MEDS: ATORVASTATIN 40 MG TAB PO SCH (19:50)
[2019-10-23 19:53] LABS: Glucose,Whole Blood 97 mg/dL (75-99)
[2019-10-24] MEDS ORDERED: HYDROcodone/APAP 5-325MG 1 EACH TAB ONE (05:30)
[2019-10-24 07:03] LABS: Glucose,Whole Blood 92 mg/dL (75-99)
[2019-10-24] MEDS: FLUTICASONE 110 MCG INHALER INHALATION SCH ×2 (07:29→20:38)
[2019-10-24] MEDS: INSULIN ASPART (NovoLOG) 100 UNIT/ML VIAL SQ SCH ×4 (07:53→21:00)
[2019-10-24 09:49] LABS: African American GFR (CKD) >90 (>60 ml/min/1.73 sqM); Anion Gap 13 mmol/L; Basophils % (A) 0 %; Blood Urea Nitrogen 23 mg/dL (7-17); Calcium 8.9 mg/dL (8.4-10.2); Carbon Dioxide 26 mmol/L (22-30); Chloride 101 mmol/L (98-107); Eosinophils # (A) 0.1 k/uL (0-0.7); Eosinophils % (A) 1 %; Glucose 83 mg/dL (74-99); HCT 41.7 % (34.0-46.0); HGB 14.1 gm/dL (11.4-16.0); Lymphocytes # (A) 0.5 k/uL (1.0-4.8); Lymphocytes % (A) 6 %; MCH 27.8 pg (25.0-35.0); MCHC 33.7 g/dL (31.0-37.0); MCV 82.5 fL (80.0-100.0); Mean Platelet Volume 6.5; Monocytes # (A) 0.4 k/uL (0-1.0); Monocytes % (A) 6 %; Neutrophils # (A) 6.3 k/uL (1.3-7.7); Neutrophils % (A) 85 %; Non-African American GFR(CKD) >90 (>60 ml/min/1.73 sqM); Platelet Count 192 k/uL (150-450); Poikilocytosis Slight; Potassium 3.3 mmol/L (3.5-5.1); RBC 5.05 m/uL (3.80-5.40); RDW 15.9 % (11.5-15.5); Sodium 140 mmol/L (137-145); WBC 7.4 k/uL (3.8-10.6)
[2019-10-24] MEDS: FUROSEMIDE 10 MG/ML 4 ML VIAL IV SCH (10:00)
[2019-10-24] MEDS: ASPIRIN 81 MG PO SCH (10:01)
[2019-10-24] MEDS: LISINOPRIL 2.5 MG TAB PO SCH (10:01)
[2019-10-24] MEDS: THEOPHYLLINE 24 HOUR 300 MG CAP.ER.24H PO SCH (10:01)
[2019-10-24] MEDS: metFORMIN 500 MG TAB PO SCH ×2 (10:01→21:14)
[2019-10-24] MEDS: SERTRALINE 100 MG TAB PO SCH (10:01)
[2019-10-24] MEDS: GABAPENTIN 300 MG CAP PO SCH ×2 (10:01→21:14)
[2019-10-24] MEDS: PANTOPRAZOLE 40 MG TABLET PO SCH (10:01)
[2019-10-24] MEDS: LACTATED RINGERS 1,000 ML IV SCH ×2 (10:23→11:09)
[2019-10-24 10:27] LABS: Glucose,Whole Blood 91 mg/dL (75-99)
[2019-10-24] MEDS ORDERED: MIDAZOLAM 2 MG/2 ML VIAL ONE (11:03)
[2019-10-24] MEDS ORDERED: PHENYLEPHRINE-0.9% NACL SYG 1 MG/10 ML SYRINGE ONE (11:03)
[2019-10-24] MEDS ORDERED: ePHEDrine SULFATE/0.9% NACL/PF 50 MG/5 ML SYRINGE IV ONE (11:03)
[2019-10-24] MEDS ORDERED: PROPOFOL 10 MG/ML 20 ML VIAL IV ONE (11:03)
[2019-10-24] MEDS ORDERED: KETAMINE 10 MG/ML 20 ML VIAL ONE (11:03)
[2019-10-24] MEDS ORDERED: fentaNYL (PF) 50 MCG/ML 2 ML AMP ONE (11:03)
--- NOTE | 2019-10-24 11:08 | P.PN ---
Subjective This is a pleasant 69-year-old female seen and examined laying flat resting comfortably in bed with a human resources safety manager at the bedside. She was supposed have surgery on her hip yesterday, but was postponed until today. She denies chest pain, shortness of breath, dizziness or palpitations. Records reviewed from Dr. Kowalski's office. She has a history of paroxysmal atrial fibrillation, coronary artery disease in the setting of a STEMI and stenting of the circumflex/OM in May 2013 with a subtotal occlusion of the RCA, ischemic cardiomyopathy with EF 35-40%, ischemic limb injury status post cardiac catheterization in 2012, diabetes mellitus chronic systolic heart failure and COPD. Blood pressure today 144/72 heart rate 78 afebrile and maintaining oxygen saturation on room air. Laboratory data reviewed, WBC 7.4, hemoglobin 14.1, pl atelets 192, sodium 140, potassium 3.3, creatinine 0.63. Currently maintained on aspirin 81 mg daily, atorvastatin 40 mg daily, Lasix 40 mg IV daily, lisinopril 2.5 mg daily and Toprol 25 mg at bedtime. Echocardiogram obtained on this admission reveals impaired LV systolic function with ejection fraction 40- 45%, basal inferior, basal inferior septal, mid inferior and apical inferior wall motion hypokinesia, moderate mitral regurgitation, mild to moderate tricuspid regurgitation and moderate to severe pulmonary hypertension with an RVSP of 67 mmHg. GENERAL: Well-appearing, well-nourished and in no acute distress. NECK: Supple without JVD or thyromegaly. LUNGS: Breath sounds clear to auscultation bilaterally. Respiration equal and unlabored. No wheezes, rales or rhonchi. HEART: Regular rate and rhythm with systolic ejection murmur at the left sternal border, no rubs or gallops. S1 and S2 heard. EXTREMITIES: Normal range of motion, no edema. No clubbing or cyanosis. Peripheral pulses intact. ASSESSMENT Fall with hip fracture, scheduled for surgery today. Coagulopathy secondary to buttermaker helper anti-coagulation. INR yesterday 1.1. Paroxysmal atrial fibrillation, maintaining sinus mechanism throughout this admission. Amiodarone discontinued. Ischemic cardiomyopathy, EF 40-45% Chronic systolic heart failure, currently euvolemic clinically History of coronary artery disease in the setting of an acute NM s/p PCI Hypertension Dyslipidemia COPD Diabetes mellitus PLAN We will check her coverage for Eliquis 5 mg BID. Transition to oral lasix as she appears clinically euvolemic. Continue lisinopril, toprol, aspirin and atorvastatin as previously ordered. We will continue to follow and make recommendations accordingly. Nurse Practitioner note has been reviewed, I agree with a documented findings and plan of care. Patient was seen and examined. Objective - Vital Signs Vital signs: Vital Signs Temp 97.3 F L 10/24/19 10:20 Pulse 78 10/24/19 10:20 Resp 16 10/24/19 10:20 BP 144/72 10/24/19 10:20 Pulse Ox 92 L 10/24/19 10:20 Intake & Output 10/23/19 10/24/19 10/24/19 18:59 06:59 18:59 Output Total 1000 200 Balance -1000 -200 Output: Urine 1000 200 Other: Voiding Method Indwelling Catheter Indwelling Catheter Bedpan # Voids 1 - Labs CBC & Chem 7: 10/24/19 08:17 10/24/19 08:17 Labs: Abnormal Lab Results - Last 24 Hours (Table) 10/23/19 10/23/19 10/24/19 Range/Units 06:52 16:56 08:17 RDW 15.9 H (11.5-15.5) % Lymphocytes # 0.5 L (1.0-4.8) k/uL Potassium (3.5-5.1) mmol/L BUN (7-17) mg/dL POC Glucose (mg/dL) 100 H (75-99) mg/dL Free T4 2.48 H (0.78-2.19) ng/dL 10/24/19 Range/Units 08:17 RDW (11.5-15.5) % Lymphocytes # (1.0-4.8) k/uL Potassium 3.3 L (3.5-5.1) mmol/L BUN 23 H (7-17) mg/dL POC Glucose (mg/dL) (75-99) mg/dL Free T4 (0.78-2.19) ng/dL
[2019-10-24 11:13] LABS: Prothrombin Time 10.7 sec (9.0-12.0)
[2019-10-24] MEDS ORDERED: ceFAZolin 1,000 MG in SODIUM CHLORIDE 0.9% 1,000 ML IRRIGATION ONE (11:54)
[2019-10-24] MEDS ORDERED: traMADol 50 MG TAB PO PRN (12:34)
[2019-10-24] MEDS ORDERED: MAGNESIUM HYDROXIDE 2,400 MG/10 ML CUP PO PRN (12:34)
[2019-10-24] MEDS ORDERED: ONDANSETRON 4 MG/2 ML VIAL IVP PRN (12:34)
[2019-10-24] MEDS ORDERED: HYDROmorphone 0.5 MG/0.5 ML SYRINGE IVP PRN ×3 (12:34)
--- NOTE | 2019-10-24 12:41 | XR ---
EXAMINATION TYPE: XR Hip Complete RT, FL guidance operating room DATE OF EXAM: 10/24/2019 COMPARISON: NONE HISTORY: 69-year-old female postop IT nailing right hip FINDINGS: Intraoperative fluoroscopy demonstrating intertan nailing with hip screw fixation of the right hip. FLUOROSCOPY Fluoroscopy time of 58 seconds was used during intertrochanteric fracture fixation right hip. 2 imag e/s document/s the procedure. IMPRESSION: Intraoperative fluoroscopy as above.
[2019-10-24] MEDS ORDERED: LACTATED RINGERS 1,000 ML IV ONE (13:25)
--- NOTE | 2019-10-24 13:36 | XR ---
EXAMINATION TYPE: XR Hip Limited RT DATE OF EXAM: 10/24/2019 Comparison: None Clinical History: 69-year-old female Status post hip surgery, assess surgical alignment Findings: Skin paris along the right lateral aspect of the upper thigh. Antegrade intramedullary nail with sc rew fixation across the patient's. Alignment is anatomic. Scattered soft tissue air related to recent operation. Impression: Uncomplicated postoperative appearance intramedullary nail with hip screw fixation of the proximal ri ght femur.
--- NOTE | 2019-10-24 16:27 | P.PN ---
Subjective Progress Note Date: 10/24/19 Principal diagnosis: This is a 69-year-old female who was lying in bed in no acute distress with no acute overnight issues. Patient was recently admitted for a fall and right femu r fracture and is being closely monitored. Patient is scheduled to have surgery this afternoon. Current INR is 1.1. Currently patient is requiring oxygen via nasal cannula at 4-5 L per nursing staff. Patient denies any chest pain, shortness of breath, or palpitations. Patient states that she has to use oxygen sometimes but is unsure of how much. Patient states that she does have a history of heart failure. IV Lasix will be ordered. Yesterday's chest x-ray shows that there may be a component of pulmonary venous hypertension and interstitial edema which is similar to previous x-ray. Will continue to monitor closely. 10/24/2019 Patient is lying in bed in no acute distress and will be going to surgery today for right femur fracture and is being closely monitored. Cardiology is follo wing as well. No acute overnight issues. This morning patient was still on 5 L of oxygen via nasal cannula and discussed with the nursing staff about weaning off after surgery as patient normally does not require oxygen on a continued basis. Patient was being maintained on IV Lasix 40 mg daily and will transition to oral Lasix. Will continue to monitor closely. Guarded prognosis. Objective - Vital Signs Vital signs: Vital Signs Temp 98.4 F 10/24/19 13:40 Pulse 85 10/24/19 15:58 Resp 17 10/24/19 15:58 BP 123/69 10/24/19 15:10 Pulse Ox 94 L 10/24/19 13:40 Intake & Output 10/23/19 10/24/19 10/24/19 18:59 06:59 18:59 Intake Total 1261 Output Total 1000 200 300 Balance -1000 -200 961 Intake: IV 1051 Intake, IV Titration 210 Amount Lactated Ringers 1,000 ml 160 @ 20 mls/hr IV .Q24H [facility] Rx#:[id number] ceFAZolin 2 gm In Sodium 50 Chloride 0.9% 50 ml @ 100 mls/hr IVPB Q8HR [facility] Rx# :[id number] Output: Urine 1000 200 200 Estimated Blood Loss 100 Other: Voiding Method Indwelling Catheter Indwelling Catheter Bedpan # Voids 1 1 - Exam Gen: This is a 69-year-old female lying in bed in no acute distress. Temp is 97.3 F, pulse is 78, respirations are 16, blood pressure is 144/72, oxygen saturation is 92 % on room air. HEENT: Head is atraumatic, normocephalic. Pupils equal, round. Sclerae is anicteric. NECK: Supple. No JVD. No lymphadenopathy. No thyromegaly. LUNGS: Diminished breath sounds at the bases with no wheezes or rhonchi noted. No intercostal retractions. HEART: S1, S2 are muffled ABDOMEN: Soft. Bowel sounds are present. No masses. No tenderness. EXTREMITIES: No pedal edema. No calf tenderness. Right hip tenderness upon pa lpation NEUROLOGICAL: Patient is awake, alert and oriented x3. Cranial nerves 2 through 12 are grossly intact. - Labs CBC & Chem 7: 10/24/19 08:17 10/24/19 08:17 Labs: Abnormal Lab Results - Last 24 Hours (Table) 10/23/19 10/24/19 10/24/19 Range/Units 16:56 08:17 08:17 RDW 15.9 H (11.5-15.5) % Lymphocytes # 0.5 L (1.0-4.8) k/uL Potassium 3.3 L (3.5-5.1) mmol/L BUN 23 H (7-17) mg/dL POC Glucose (mg/dL) 100 H (75-99) mg/dL Assessment and Plan Assessment: Status post fall and right hip intertrochanteric fracture Coumadin coagulopathy, improved Congestive heart failure, acute exacerbation, acute on chronic systolic heart failure, minimal Chronic obstructive pulmonary disease History of coronary artery disease, stent Diabetes mellitus type 2 Hypertension Hyperlipidemia and line history of myocardial infarction history of degenerative joint disease History of pneumonia History of cholecystectomy History of anxiety Remote history of nicotine dependence Obesity with body mass index of 37 Gait dysfunction Full code Recommendations and discussion: Recommend to continue current medications, management, and symptomatic treatment. Cardiology is following. Patient will be going for surgery for right IT fracture. Will await orthopedic surgical report. Will continue to monitor closely. Will continue to follow closely with surgery. Further recommendations to follow. Case management and social work are following for discharge plans to [facility] rehab facility for PT/OT therapy upon discharge.
[2019-10-24] MEDS: HYDROmorphone 0.5 MG/0.5 ML SYRINGE IVP PRN (16:45)
[2019-10-24 17:05] LABS: Glucose,Whole Blood 96 mg/dL (75-99)
--- NOTE | 2019-10-24 20:16 | OP ---
OPERATIVE REPORT DATE OF PROCEDURE: 10/24/2019. PREOPERATIVE DIAGNOSIS: Right intertrochanteric hip fracture. POSTOP DIAGNOSIS: Right intertrochanteric hip fracture. PROCEDURE PERFORMED: Right intramedullary hip screw fixation for right intertrochanteric hip fracture. SURGEON: Raman Urbano M.D. CALL WORKER: Jose L GIORDANO. ANESTHESIA: Spinal with sedation. ESTIMATED BLOOD LOSS: 100 mL. TOURNIQUET: None. DRAINS: None. COMPLICATIONS: None apparent. DISPOSITION: Postanesthesia care unit. INDICATIONS: Glenis is a very pleasant 69-year-old female who fell in the evening of October 20. She has originally was taken to [facility]. She has multiple medical comorbidities including coronary artery disease, congestive heart failure, diabetes mellitus, and her INR was 9. She was then transferred to [facility] for higher level of care. She was admitted to the medical service. She has subsequently been cleared by the medical service, which includes a cardiac workup and lowering her INR. Recommendation was for intramedullary hip screw fixation for her right intertrochanteric hip fracture. The risks of procedure were discussed with her and her family in detail. These risks include, but are not limited to risk of infection, nerve damage, bleeding, pain, and a small risk of deep vein thrombosis which could lead to fatal pulmonary embolism. Further risks include possibility for periarticular fracture, failure of the fracture to heal and failure of the implant. All of her and her family's questions were answered to their satisfaction. Appropriate informed consent was obtained. DESCRIPTION OF THE PROCEDURE: The patient identified in preop holding area. Surgical sites marked by both the patient and myself. She was then transferred to the operative suite. She was placed supine on the operative table. Spinal anesthetic was then administered and dosed per the anesthesia without apparent complication. She was then placed onto the fracture table well-padded in preparation for surgery. Fluoroscopy was brought in. The fracture was reduced with traction and rotation. This was confirmed with fluoroscopic imaging. The patient's right lower extremity was then prepped and draped in the usual sterile fashion. Standard surgical pause undertaken to ensure that we were operating on the correct site and that appropriate preoperative antibiotics were given. All staff were in agreement and we proceeded. The tip of greater trochanter was then identified. An approximate 3 cm incision starting at the level of the tip of the greater trochanter and extending proximally in line with the shaft of the femur was then made. Dissection was then carried down sharply to the tensor fascia. The tensor fascia was then incised in line with the skin incision. This gave me good access to the tip of the greater trochanter. The curved awl was then placed on the medial aspect of the tip of the greater trochanter. The threaded guide pin was then advanced down the center of the femur starting at the medial aspect of the tip of the greater trochanter. Placement of the threaded guide pin was confirmed with fluoroscopic imaging. I then proceeded to utilize the starting drill. The threaded guide pin was then removed and a ball-tipped guidewire was then placed down the shaft of the femur. Again, its proper placement was confirmed with fluoroscopic imaging. I then reamed the femoral shaft. I started with a 9 mm reamer and incrementally increased up to a 13 mm reamer. I then had the [place] service liaison representative open a Soheila gamma nail, 180 mm x 11 mm x 125 degrees. This was opened and assembled on the back table by the surgical processor. The gamma nail was then inserted over the ball-tipped guidewire. The ball-tipped guidewire was then removed. I then proceeded with placement, placing the intramedullary hip screw with the hip screw. A second small stab incision was made on the lateral thigh. The threaded guide pin was then placed through the nail into the center of the femoral head on both AP and lateral views. The tip-apex distance was appropriate. This was confirmed with both AP and lateral views. I then measured 100 mm. The cannulated drill was then set to 100 mm. The threaded guide pin was then over drilled with the cannulated drill. I then had the service liaison representative open a 10 mm x 100 mm partially-threaded hip screw. This was inserted over the threaded guide pin. This was placed deep into the center of the femoral head on both AP and lateral views. The tip-apex distance was appropriate. The screw had a very good purchase in bone. I then proceeded to compress the fracture. Once that was done, I then placed the set screw. The set screw was tightened fully and then backed off 1/4 turn to allow for compression at the fracture site. I then proceeded to place the distal interlocking screw. A 3rd small stab incision was made on the lateral thigh. A 37.5 x 5 mm distal static locking screw was then placed utilizing standard technique. The tip placement was confirmed through the nail of appropriate length utilizing fluoroscopic imaging. At this point in time, no further work was deemed necessary. Final AP and lateral views of the construct were taken. The intramedullary nail was indeed inside the femur. The hip screw was of appropriate length and it was placed deep in the center of the femoral head. The tip-apex distance was appropriate. The set screw was through the nail and was of appropriate length as well. At this point in time, no further work was deemed necessary. The wounds were thoroughly irrigated. The tensor fascia was closed with 0-Vicryl interrupted suture. The subcutaneous tissue closed with 2-0 Vicryl interrupted suture and the skin was closed with stainless steel paris. Sterile compressive dressing was then applied. All sponge and needle counts were deemed correct prior to closure. The patient tolerated procedure without apparent complication. She was transferred to the recovery room in stable condition. MMODL / IJN: [id number] /
[2019-10-24 20:34] LABS: Glucose,Whole Blood 111 mg/dL (75-99)
[2019-10-24] MEDS: ATORVASTATIN 40 MG TAB PO SCH (21:14)
[2019-10-24] MEDS: METOPROLOL SUCCINATE (ER) 25 MG TAB.ER.24H PO SCH (21:14)
[2019-10-24] MEDS: HYDROcodone/APAP 7.5-325MG 1 EACH TAB PO PRN (21:15)
[2019-10-24] MEDS: SENNOSIDES-DOCUSATE SODIUM 1 EACH TAB PO SCH (21:25)
[2019-10-25] MEDS: HYDROcodone/APAP 7.5-325MG 1 EACH TAB PO PRN ×2 (03:53→10:49)
[2019-10-25] MEDS: LEVOTHYROXINE 125 MCG TAB PO SCH ×2 (03:53→03:55)
[2019-10-25 07:18] LABS: Anisocytosis Slight; Basophils % (A) 1 %; Eosinophils # (A) 0.2 k/uL (0-0.7); Eosinophils % (A) 3 %; HCT 41.1 % (34.0-46.0); HGB 13.7 gm/dL (11.4-16.0); Lymphocytes # (A) 0.3 k/uL (1.0-4.8); Lymphocytes % (A) 5 %; MCH 27.8 pg (25.0-35.0); MCHC 33.5 g/dL (31.0-37.0); MCV 83.1 fL (80.0-100.0); Mean Platelet Volume 6.6; Monocytes # (A) 0.4 k/uL (0-1.0); Monocytes % (A) 6 %; Neutrophils # (A) 5.5 k/uL (1.3-7.7); Neutrophils % (A) 84 %; Platelet Count 180 k/uL (150-450); Poikilocytosis Slight; RBC 4.94 m/uL (3.80-5.40); WBC 6.6 k/uL (3.8-10.6)
[2019-10-25 07:22] LABS: Glucose,Whole Blood 98 mg/dL (75-99)
[2019-10-25] MEDS: INSULIN ASPART (NovoLOG) 100 UNIT/ML VIAL SQ SCH ×4 (07:25→20:26)
[2019-10-25] MEDS: FLUTICASONE 110 MCG INHALER INHALATION SCH ×2 (07:37→19:58)
--- NOTE | 2019-10-25 10:26 | P.PN ---
Subjective Progress Note Date: 10/25/19 Principal diagnosis: Right IT hip fracture Patient is seen at bedside this morning. She is postop day #1 from gamma nail for right IT fracture. She has pain at the surgical site as expected but denies any new complaints. She denies numbness, tingling or calf pain. Review of s ystems is negative for fever, chills, chest pain, shortness of breath or other Objective - Vital Signs Vital signs: Vital Signs Temp 98.3 F 10/25/19 07:46 Pulse 75 10/25/19 07:46 Resp 16 10/25/19 07:46 BP 114/70 10/25/19 07:46 Pulse Ox 90 L 10/25/19 07:46 Intake & Output 10/24/19 10/25/19 10/25/19 18:59 06:59 18:59 Intake Total 1261 Output Total 300 300 Balance 961 -300 Intake: IV 1051 Intake, IV Titration 210 Amount Lactated Ringers 1,000 ml 160 @ 20 mls/hr IV .Q24H [facility] Rx#:[id number] ceFAZolin 2 gm In Sodium 50 Chloride 0.9% 50 ml @ 100 mls/hr IVPB Q8HR [facility] Rx# :[id number] Output: Urine 200 300 Estimated Blood Loss 100 Other: Voiding Method Bedpan Indwelling Catheter Indwelling Catheter # Voids 1 1 - Exam Inspection reveals a benign surgical wound. There is no active bleeding or drainage. Neurovascular status is intact throughout the lower extremity with motor and sensation fully intact. Calf is soft and nontender. 2+ dorsalis ped is pulse and less than 2 second cap refill is present. - Constitutional General appearance: Present: no acute distress - Labs CBC & Chem 7: 10/25/19 06:45 10/24/19 08:17 Labs: Abnormal Lab Results - Last 24 Hours (Table) 10/24/19 10/25/19 Range/Units 20:31 06:45 RDW 16.0 H (11.5-15.5) % Lymphocytes # 0.3 L (1.0-4.8) k/uL POC Glucose (mg/dL) 111 H (75-99) mg/dL Assessment and Plan (1) Fracture of right hip Narrative/Plan: She will continue with routine postop orthopedic protocol including pain management, wound care, PT, DVT prophylaxis and medical management. She may transfer to ECF from ortho standpoint and when ok with IM. Current Visit: Yes Status: Acute Priority: Medium Code(s): S72.001A - FRACTURE OF UNSP PART OF NECK OF RIGHT FEMUR, INIT SNOMED Code(s): 751192047 Time with Patient: Less than 30
[2019-10-25] MEDS: FUROSEMIDE 40 MG TAB PO SCH (10:50)
[2019-10-25] MEDS: THEOPHYLLINE 24 HOUR 300 MG CAP.ER.24H PO SCH (10:50)
[2019-10-25] MEDS: PANTOPRAZOLE 40 MG TABLET PO SCH (10:50)
[2019-10-25] MEDS: LISINOPRIL 2.5 MG TAB PO SCH (10:50)
[2019-10-25] MEDS: metFORMIN 500 MG TAB PO SCH ×2 (10:50→20:31)
[2019-10-25] MEDS: GABAPENTIN 300 MG CAP PO SCH ×2 (10:50→20:32)
[2019-10-25] MEDS: SERTRALINE 100 MG TAB PO SCH (10:50)
[2019-10-25] MEDS: ASPIRIN 81 MG PO SCH (10:50)
[2019-10-25 11:45] LABS: Glucose,Whole Blood 119 mg/dL (75-99)
[2019-10-25] MEDS: DOCUSATE 100 MG CAP PO SCH ×2 (12:46→20:32)
[2019-10-25] MEDS: oxyCODONE ER 10 MG TAB.ER.12H PO SCH ×2 (12:46→20:31)
[2019-10-25] MEDS: MULTIVITAMINS, THERA 1 EACH TAB PO SCH (12:46)
--- NOTE | 2019-10-25 12:46 | P.PN ---
Subjective This is a pleasant 69-year-old female seen and examined laying flat resting comfortably in bed with a safety deposit supervisor at the bedside. She was supposed have surgery on her hip yesterday, but was postponed until today. She denies chest pain, shortness of breath, dizziness or palpitations. Records reviewed from Dr. Kowalski's office. She has a history of paroxysmal atrial fibrillation, coronary artery disease in the setting of a STEMI and stenting of the circumflex/OM in May 2013 with a subtotal occlusion of the RCA, ischemic cardiomyopathy with EF 35-40%, ischemic limb injury status post cardiac catheterization in 2012, diabetes mellitus chronic systolic heart failure and COPD. She underwent right IM nailing secondary to right intertrochanteric fracture. She is seen and examined sitting up in the chair in no acute distress. Postoperative discomfort of the right leg. No chest pain, shortness of breath, dizziness or palpitations. Laboratory data reviewed, WBC 6.6, hemoglobin 13.7, platelets 180. Blood pressure 114/70 heart rate 75 afebrile oxygen saturation 90% on room air, nasal cannula applied. GENERAL: Well-appearing, well-nourished and in no acute distress. NECK: Supple without JVD or thyromegaly. LUNGS: Breath sounds clear to auscultation bilaterally. Respiration equal and unlabored. No wheezes, rales or rhonchi. HEART: Regular rate and rhythm with systolic ejection murmur at the left sternal border, no rubs or gallops. S1 and S2 heard. EXTREMITIES: Normal range of motion, no edema. No clubbing or cyanosis. Peripheral pulses intact. ASSESSMENT Fall with hip fracture, POD #1 Coagulopathy secondary to senior care anti-coagulation. Will recommend changing to Eliquis Paroxysmal atrial fibrillation, maintaining sinus mechanism throughout this admission. Amiodarone discontinued. Ischemic cardiomyopathy, EF 40-45% Chronic systolic heart failure, currently euvolemic clinically History of coronary artery disease in the setting of an acute NV s/p PCI Hypertension Dyslipidemia COPD Diabetes mellitus PLAN Eliquis is covered with a $40 co-pay, which she is agreeable with. Initiate first dose today if ok with ortho. Continue lisinopril, toprol, aspirin and atorvastatin as previously ordered. Stable from a cardiac perspective, we will follow as needed. Nurse Practitioner note has been reviewed, I agree with a documented findings and plan of care. Patient was seen and examined. Objective - Vital Signs Vital signs: Vital Signs Temp 98.3 F 10/25/19 07:46 Pulse 75 10/25/19 07:46 Resp 16 10/25/19 07:46 BP 114/70 10/25/19 07:46 Pulse Ox 90 L 10/25/19 07:46 Intake & Output 10/24/19 10/25/19 10/25/19 18:59 06:59 18:59 Intake Total 1261 Output Total 300 300 Balance 961 -300 Intake: IV 1051 Intake, IV Titration 210 Amount Lactated Ringers 1,000 ml 160 @ 20 mls/hr IV .Q24H [facility] Rx#:[id number] ceFAZolin 2 gm In Sodium 50 Chloride 0.9% 50 ml @ 100 mls/hr IVPB Q8HR [facility] Rx# :[id number] Output: Urine 200 300 Estimated Blood Loss 100 Other: Voiding Method Bedpan Indwelling Catheter Indwelling Catheter # Voids 1 1 - Labs CBC & Chem 7: 10/25/19 06:45 10/24/19 08:17 Labs: Abnormal Lab Results - Last 24 Hours (Table) 10/24/19 10/25/19 10/25/19 Range/Units 20:31 06:45 11:31 RDW 16.0 H (11.5-15.5) % Lymphocytes # 0.3 L (1.0-4.8) k/uL POC Glucose (mg/dL) 111 H 119 H (75-99) mg/dL
--- NOTE | 2019-10-25 16:07 | P.PN ---
Subjective Progress Note Date: 10/25/19 Principal diagnosis: This is a 69-year-old female who was lying in bed in no acute distress with no acute overnight issues. Patient was recently admitted for a fall and right femu r fracture and is being closely monitored. Patient is scheduled to have surgery this afternoon. Current INR is 1.1. Currently patient is requiring oxygen via nasal cannula at 4-5 L per nursing staff. Patient denies any chest pain, shortness of breath, or palpitations. Patient states that she has to use oxygen sometimes but is unsure of how much. Patient states that she does have a history of heart failure. IV Lasix will be ordered. Yesterday's chest x-ray shows that there may be a component of pulmonary venous hypertension and interstitial edema which is similar to previous x-ray. Will continue to monitor closely. 10/24/2019 Patient is lying in bed in no acute distress and will be going to surgery today for right femur fracture and is being closely monitored. Cardiology is follo wing as well. No acute overnight issues. This morning patient was still on 5 L of oxygen via nasal cannula and discussed with the nursing staff about weaning off after surgery as patient normally does not require oxygen on a continued basis. Patient was being maintained on IV Lasix 40 mg daily and will transition to oral Lasix. Will continue to monitor closely. Guarded prognosis. 10/25/2019 Patient is lying in bed after returning from the bedside commode with assistance of staff and physical therapy. Patient states that she was having severe bone pain in the right hip and is to be expected as she just underwent surgery for right IT fracture yesterday. Once the patient returned back to the bed and received pain medications her pain is much more manageable at this time. Patient denies any numbing or tingling sensation to the right lower extremity. Surgical dressing on the right hip is dry and intact with no drainage noted. Patient denies any chest pain, shortness of breath, or palpitations at this time. Patient is afebrile. Patient denies any nausea or vomiting and has been tolerating diet. Patient is currently on 3 L of oxygen via nasal cannula. Discussed with the nursing staff again today about weaning off O2 as she does not normally require oxygen at home. Patient would like to go to [facility] for rehab upon discharge. Authorization is pending at this time. Case management and social work are following. Patient will continue with PT/OT. Will continue to monitor closely. Objective - Vital Signs Vital signs: Vital Signs Temp 98.3 F 10/25/19 07:46 Pulse 75 10/25/19 07:46 Resp 16 10/25/19 07:46 BP 114/70 10/25/19 07:46 Pulse Ox 90 L 10/25/19 07:46 Intake & Output 10/24/19 10/25/19 10/25/19 18:59 06:59 18:59 Intake Total 1261 Output Total 300 300 Balance 961 -300 Intake: IV 1051 Intake, IV Titration 210 Amount Lactated Ringers 1,000 ml 160 @ 20 mls/hr IV .Q24H [facility] Rx#:[id number] ceFAZolin 2 gm In Sodium 50 Chloride 0.9% 50 ml @ 100 mls/hr IVPB Q8HR [facility] Rx# :[id number] Output: Urine 200 300 Estimated Blood Loss 100 Other: Voiding Method Bedpan Indwelling Catheter Indwelling Catheter # Voids 1 1 - Exam Gen: This is a 69-year-old female lying in bed in no acute distress. Temp is 98.3 F, pulse is 75, respirations are 16, blood pressure is 114/70, oxygen saturation is 90 % on room air. HEENT: Head is atraumatic, normocephalic. Pupils equal, round. Sclerae is anicteric. NECK: Supple. No JVD. No lymphadenopathy. No thyromegaly. LUNGS: Diminished breath sounds at the bases with no wheezes or rhonchi noted. No intercostal retractions. HEART: S1, S2 are muffled ABDOMEN: Soft. Bowel sounds are present. No masses. No tenderness. EXTREMITIES: No pedal edema. No calf tenderness. Right hip tenderness upon palpation. Surgical dressing is dry and intact on the right hip NEUROLOGICAL: Patient is awake, alert and oriented x3. Cranial nerves 2 through 12 are grossly intact. - Labs CBC & Chem 7: 10/25/19 06:45 10/24/19 08:17 Labs: Abnormal Lab Results - Last 24 Hours (Table) 10/24/19 10/25/19 10/25/19 Range/Units 20:31 06:45 11:31 RDW 16.0 H (11.5-15.5) % Lymphocytes # 0.3 L (1.0-4.8) k/uL POC Glucose (mg/dL) 111 H 119 H (75-99) mg/dL Assessment and Plan Assessment: Status post fall and right hip intertrochanteric fracture Coumadin coagulopathy, improved Congestive heart failure, acute exacerbation, acute on chronic systolic heart failure, minimal Chronic obstructive pulmonary disease History of coronary artery disease, stent Diabetes mellitus type 2 Hypertension Hyperlipidemia and line history of myocardial infarction history of degenerative joint disease History of pneumonia History of cholecystectomy History of anxiety Remote history of nicotine dependence Obesity with body mass index of 37 Gait dysfunction Full code Recommendations and discussion: Recommend to continue current medications, management, and symptomatic treatm ent. Patient will transition to [facility]. Patient underwent gamma nail right IT fracture surgery yesterday. Will continue to monitor closely. Will continue to follow closely with surgery. Continue to wean off oxygen. Further recommendations to follow. Case management and social work are following for discharge plans to [facility] rehab facility for PT/OT therapy upon discharge once authorization is obtained. Possible discharge in 48 hours.
[2019-10-25 16:54] LABS: Glucose,Whole Blood 109 mg/dL (75-99)
[2019-10-25] MEDS: LACTATED RINGERS 1,000 ML IV SCH (19:53)
[2019-10-25] MEDS: SENNOSIDES-DOCUSATE SODIUM 1 EACH TAB PO SCH (20:31)
[2019-10-25] MEDS: APIXABAN 5 MG TAB PO SCH (20:31)
[2019-10-25] MEDS: ATORVASTATIN 40 MG TAB PO SCH (20:31)
[2019-10-25] MEDS: METOPROLOL SUCCINATE (ER) 25 MG TAB.ER.24H PO SCH (20:32)
[2019-10-25 20:35] LABS: Glucose,Whole Blood 123 mg/dL (75-99)
[2019-10-26] MEDS: LEVOTHYROXINE 125 MCG TAB PO SCH (05:06)
[2019-10-26] MEDS: INSULIN ASPART (NovoLOG) 100 UNIT/ML VIAL SQ SCH ×4 (07:12→20:55)
[2019-10-26 07:17] LABS: Glucose,Whole Blood 91 mg/dL (75-99)
[2019-10-26] MEDS: MULTIVITAMINS, THERA 1 EACH TAB PO SCH (07:27)
[2019-10-26] MEDS: oxyCODONE ER 10 MG TAB.ER.12H PO SCH ×2 (07:27→20:51)
[2019-10-26] MEDS: THEOPHYLLINE 24 HOUR 300 MG CAP.ER.24H PO SCH (07:28)
[2019-10-26] MEDS: DOCUSATE 100 MG CAP PO SCH ×2 (07:29→20:52)
[2019-10-26] MEDS: APIXABAN 5 MG TAB PO SCH ×2 (07:29→20:52)
[2019-10-26] MEDS: LISINOPRIL 2.5 MG TAB PO SCH (07:29)
[2019-10-26] MEDS: SERTRALINE 100 MG TAB PO SCH (07:29)
[2019-10-26] MEDS: GABAPENTIN 300 MG CAP PO SCH ×2 (07:29→20:50)
[2019-10-26] MEDS: FUROSEMIDE 40 MG TAB PO SCH (07:29)
[2019-10-26] MEDS: PANTOPRAZOLE 40 MG TABLET PO SCH (07:29)
[2019-10-26] MEDS: ASPIRIN 81 MG PO SCH (07:29)
[2019-10-26] MEDS: metFORMIN 500 MG TAB PO SCH ×2 (07:29→20:52)
[2019-10-26] MEDS: FLUTICASONE 110 MCG INHALER INHALATION SCH ×2 (07:30→21:07)
--- NOTE | 2019-10-26 10:05 | P.PN ---
Subjective Progress Note Date: 10/26/19 Principal diagnosis: Status post right hip gamma nail This is a 69 year-old female post right hip gamma nail. This is post-op day 2. The patient was evaluated at the bedside today. The patient denies nausea, vomiting, abdominal pain, shortness of breath, and chest pain this morning. She states her pain is controlled at this time. The patient has been up with physical therapy. We are awaiting skilled rehab placement. Objective - Vital Signs Vital signs: Vital Signs Temp 98 F 10/26/19 07:57 Pulse 67 10/26/19 07:57 Resp 16 10/26/19 07:57 BP 94/50 10/26/19 07:57 Pulse Ox 95 10/26/19 07:57 Intake & Output 10/25/19 10/26/19 10/26/19 18:59 06:59 18:59 Intake Total 250 600 Output Total 300 400 Balance -50 200 Intake: Intake, IV Titration 60 Amount Lactated Ringers 1,000 ml 60 @ 20 mls/hr IV .Q24H [facility] Rx#:[id number] Oral 250 540 Output: Urine 300 400 Uretheral (Rosa) 400 Other: Voiding Method Indwelling Catheter Indwelling Catheter Indwelling Catheter - Exam The patient does not appear in acute distress. Alert and orientated x3. Dressing is clean dry and intact. Incision appears fine with no erythema or active drainage. Ezra are in place. Calf is soft and nontender. Good foot and ankle motion without difficulty. Sensation and circulatory status is intact. - Labs CBC & Chem 7: 10/25/19 06:45 10/24/19 08:17 Labs: Abnormal Lab Results - Last 24 Hours (Table) 10/25/19 10/25/19 10/25/19 Range/Units 11:31 16:42 20:23 POC Glucose (mg/dL) 119 H 109 H 123 H (75-99) mg/dL Assessment and Plan (1) Status post hip surgery Current Visit: Yes Status: Acute Code(s): Z98.890 - OTHER SPECIFIED POSTPROCEDURAL STATES SNOMED Code(s): 359320496 (2) Fall Current Visit: Yes Status: Acute Code(s): W19.XXXA - UNSPECIFIED FALL, INITIAL ENCOUNTER SNOMED Code(s): 5571188 (3) Fracture of right hip Current Visit: Yes Status: Acute Priority: Medium Code(s): S72.001A - FRACTURE OF UNSP PART OF NECK OF RIGHT FEMUR, INIT SNOMED Code(s): 698838107 Plan: 1. Continue pain control 2. Anticoagulation with Eliquis per cardiology 3. Continue physical therapy and ambulation 4. Anticipate discharge to skilled rehab, likely tomorrow.
[2019-10-26] MEDS: HYDROcodone/APAP 7.5-325MG 1 EACH TAB PO PRN (11:38)
[2019-10-26 12:11] LABS: Glucose,Whole Blood 128 mg/dL (75-99)
[2019-10-26] MEDS: LACTATED RINGERS 1,000 ML IV SCH (15:39)
[2019-10-26 17:05] LABS: Glucose,Whole Blood 92 mg/dL (75-99)
[2019-10-26 20:17] LABS: Glucose,Whole Blood 105 mg/dL (75-99)
[2019-10-26] MEDS: ATORVASTATIN 40 MG TAB PO SCH (20:50)
[2019-10-26] MEDS: SENNOSIDES-DOCUSATE SODIUM 1 EACH TAB PO SCH (20:52)
[2019-10-26] MEDS: METOPROLOL SUCCINATE (ER) 25 MG TAB.ER.24H PO SCH (20:52)
--- NOTE | 2019-10-26 23:47 | PN ---
PROGRESS NOTE DATE OF SERVICE: 10/26/2019 This 69-year-old woman who was admitted after a fall and right hip intertrochanteric fracture is being closely monitored. Patient complains of severe pain at this time. PT and OT evaluation, possible ECF rehab. No chest pain. No palpitations. No fever. EXAM: Alert and oriented x3. Pulse 68, blood pressure 96/52, respirations 16, temperature 97.9, pulse ox 94% on 3 L. HEENT: Conjunctivae normal. Oral mucosa moist. NECK: No jugular venous distention. No lymph node enlargement. CARDIOVASCULAR: S1, S2. RESPIRATORY: Diminished breath sounds at the bases. No rhonchi, no crackles. ABDOMEN: Soft, nontender. LEGS: Status post surgery. NERVOUS SYSTEM: No focal deficits. LABS: Accu-Cheks 91. Otherwise, potassium 3.3. ASSESSMENT: 1. Status post fall and right hip intertrochanteric fracture and right intramedullary hip screw fixation for right intertrochanteric hip fracture. 2. Gait dysfunction. 3. Severe pain. 4. Coumadin coagulopathy, improved. 5. Congestive heart failure, acute exacerbation with acute on chronic systolic dysfunction, improved. 6. Chronic obstructive pulmonary disease. 7. History of coronary artery disease, stent. 8. Diabetes mellitus type 2. 9. Hypertension. 10.Hyperlipidemia. 11.History of myocardial infarction. 12.History of degenerative joint disease. 13.History of pneumonia. 14.History of cholecystectomy. 15.History of anxiety. 16.Remote history of nicotine dependence. 17.Obesity with body mass index of 37. 18.Gait dysfunction. 19.FULL CODE. RECOMMENDATIONS AND DISCUSSION: Continue current medical management and symptomatic treatment. Otherwise, at this time I would recommend pain management, PT/OT evaluation, continue the rest of medications. Possible ECF rehab. Further recommendations to follow. MMODL / IJN: [id number] /
[2019-10-27] MEDS: HYDROcodone/APAP 7.5-325MG 1 EACH TAB PO PRN (04:25)
[2019-10-27] MEDS: LEVOTHYROXINE 125 MCG TAB PO SCH (04:25)
[2019-10-27 07:22] LABS: Glucose,Whole Blood 87 mg/dL (75-99)
[2019-10-27] MEDS: INSULIN ASPART (NovoLOG) 100 UNIT/ML VIAL SQ SCH ×4 (07:25→20:16)
[2019-10-27 08:21] LABS: Basophils % (A) 1 %; Eosinophils # (A) 0.1 k/uL (0-0.7); Eosinophils % (A) 2 %; HCT 36.9 % (34.0-46.0); HGB 12.5 gm/dL (11.4-16.0); Lymphocytes # (A) 0.4 k/uL (1.0-4.8); Lymphocytes % (A) 8 %; MCH 28.1 pg (25.0-35.0); MCHC 33.9 g/dL (31.0-37.0); MCV 82.8 fL (80.0-100.0); Mean Platelet Volume 6.3; Monocytes # (A) 0.3 k/uL (0-1.0); Monocytes % (A) 5 %; Neutrophils # (A) 4.6 k/uL (1.3-7.7); Neutrophils % (A) 84 %; Platelet Count 196 k/uL (150-450); Poikilocytosis Slight; RBC 4.46 m/uL (3.80-5.40); RDW 15.9 % (11.5-15.5); WBC 5.5 k/uL (3.8-10.6)
[2019-10-27 08:26] LABS: African American GFR (CKD) >90 (>60 ml/min/1.73 sqM); Anion Gap 5 mmol/L; Blood Urea Nitrogen 22 mg/dL (7-17); Calcium 8.2 mg/dL (8.4-10.2); Carbon Dioxide 30 mmol/L (22-30); Chloride 104 mmol/L (98-107); Glucose 80 mg/dL (74-99); Non-African American GFR(CKD) >90 (>60 ml/min/1.73 sqM); Potassium 3.4 mmol/L (3.5-5.1); Sodium 139 mmol/L (137-145)
[2019-10-27] MEDS: FLUTICASONE 110 MCG INHALER INHALATION SCH ×2 (08:47→20:09)
[2019-10-27] MEDS: THEOPHYLLINE 24 HOUR 300 MG CAP.ER.24H PO SCH (09:10)
[2019-10-27] MEDS: LISINOPRIL 2.5 MG TAB PO SCH (09:10)
[2019-10-27] MEDS: ASPIRIN 81 MG PO SCH (09:10)
[2019-10-27] MEDS: PANTOPRAZOLE 40 MG TABLET PO SCH (09:11)
[2019-10-27] MEDS: FUROSEMIDE 40 MG TAB PO SCH (09:11)
[2019-10-27] MEDS: GABAPENTIN 300 MG CAP PO SCH ×2 (09:11→20:22)
[2019-10-27] MEDS: APIXABAN 5 MG TAB PO SCH ×2 (09:11→20:22)
[2019-10-27] MEDS: metFORMIN 500 MG TAB PO SCH ×2 (09:11→20:22)
[2019-10-27] MEDS: SERTRALINE 100 MG TAB PO SCH (09:11)
[2019-10-27] MEDS: DOCUSATE 100 MG CAP PO SCH ×2 (09:11→20:22)
[2019-10-27] MEDS: MULTIVITAMINS, THERA 1 EACH TAB PO SCH (09:11)
[2019-10-27] MEDS: oxyCODONE ER 10 MG TAB.ER.12H PO SCH ×2 (09:22→20:22)
[2019-10-27 12:07] LABS: Glucose,Whole Blood 89 mg/dL (75-99)
[2019-10-27] MEDS: LACTATED RINGERS 1,000 ML IV SCH (13:22)
[2019-10-27 14:47] VITALS: BMI 36.9
[2019-10-27] MEDS ORDERED: Magnesium Replacement Protocol 1 EACH MISC MISCELLANE PRN (16:09)
[2019-10-27] MEDS ORDERED: Potassium Replacement Protocol 1 EACH MISC MISCELLANE PRN (16:09)
[2019-10-27] MEDS ORDERED: POTASSIUM CHLORIDE ER 20 MEQ TAB.ER PO STA (16:10)
[2019-10-27 17:19] LABS: Glucose,Whole Blood 84 mg/dL (75-99)
--- NOTE | 2019-10-27 17:21 | PN ---
PROGRESS NOTE DATE OF SERVICE: 10/27/2019 This 69-year-old woman who was admitted with multiple medical problems, including hip fracture, underwent right intramedullary hip screw fixation. Currently the patient is confused on and off. Patient is being closely monitored. Patient has some hallucinations, also. The most recent hip x-ray was reviewed. Past medical history reviewed. REVIEW OF SYSTEMS: CARDIOVASCULAR SYSTEM: No angina, palpitations. RESPIRATORY SYSTEM: As mentioned earlier. GI: As mentioned earlier. NERVOUS SYSTEM: As mentioned earlier. CURRENT MEDICATIONS: Reviewed. They include: 1. Tylenol p.r.n. 2. Nerstrand 5 mg q.4 p.r.n. 3. Nerstrand 7.5 p.r.n. 4. Eliquis 5 mg p.o. b.i.d. 5. Aspirin 81 mg daily. 6. Lipitor 40 mg at bedtime. 7. Cardizem. 8. Colace. 9. Flovent. 10.Lasix. 11.Neurontin. 12.Dilaudid p.r.n. 13.NovoLog scale. 14.Synthroid. Other medications are reviewed. Doses are reviewed. PHYSICAL EXAMINATION: Patient is alert, oriented x2. Pulse 79, blood pressure 107/60, respiration 12, temperature 98.0, pulse ox 94% on 3 L. HEENT: Conjunctivae normal. NECK: No jugular venous distention. CARDIOVASCULAR SYSTEM: S1, S2 muffled. RESPIRATORY SYSTEM: Breath sounds diminished at the bases. Scattered rhonchi. No crackles. ABDOMEN: Soft, non-tender. LEGS: Status post right hip arthroplasty. NERVOUS SYSTEM: No focal deficit. LABS: WBC 5.5, hemoglobin 12.5. Sodium 139, potassium 3.4. ASSESSMENT: 1. Status post fall and right hip intertrochanteric fracture with right intramedullary hip screw fixation for right intertrochanteric hip fracture. 2. Confusion, possibly acute delirium. 3. Gait dysfunction. 4. Severe pain. 5. Coumadin coagulopathy, improved. 6. Congestive heart failure, acute exacerbation, with acute on chronic systolic dysfunction, improved. 7. Chronic obstructive pulmonary disease. 8. History of coronary artery disease, stent. 9. Diabetes mellitus, type 2. 10.Hypertension. 11.Hyperlipidemia. 12.History of myocardial infarction. 13.History of degenerative joint disease. 14.History of pneumonia. 15.History of cholecystectomy. 16.History of anxiety. 17.Remote history of nicotine dependence. 18.Obesity with body mass index of 37. 19.FULL CODE. RECOMMENDATIONS AND DISCUSSION: I recommend to continue current medications, continue with the monitoring, symptomatic treatment. Supplement potassium. Otherwise, PT/OT evaluation, possible ECF rehab. Guarded prognosis. Further recommendations to follow. MMTEO / IJN: [id number] /
[2019-10-27] MEDS: ATORVASTATIN 40 MG TAB PO SCH (20:22)
[2019-10-27] MEDS: SENNOSIDES-DOCUSATE SODIUM 1 EACH TAB PO SCH (20:22)
[2019-10-27] MEDS: POTASSIUM CHLORIDE ER 20 MEQ TAB.ER PO SCH (20:22)
[2019-10-27] MEDS: METOPROLOL SUCCINATE (ER) 25 MG TAB.ER.24H PO SCH (20:22)
[2019-10-27 20:26] LABS: Glucose,Whole Blood 99 mg/dL (75-99)
[2019-10-28] MEDS: HYDROcodone/APAP 7.5-325MG 1 EACH TAB PO PRN ×2 (02:18→18:36)
[2019-10-28] MEDS: LEVOTHYROXINE 125 MCG TAB PO SCH (05:16)
[2019-10-28 06:57] LABS: Glucose,Whole Blood 83 mg/dL (75-99)
[2019-10-28 07:25] LABS: African American GFR (CKD) >90 (>60 ml/min/1.73 sqM); Anion Gap 7 mmol/L; Blood Urea Nitrogen 20 mg/dL (7-17); Calcium 8.5 mg/dL (8.4-10.2); Carbon Dioxide 27 mmol/L (22-30); Chloride 106 mmol/L (98-107); Glucose 84 mg/dL (74-99); Magnesium 1.4 mg/dL (1.6-2.3); Non-African American GFR(CKD) >90 (>60 ml/min/1.73 sqM); Potassium 3.9 mmol/L (3.5-5.1); Sodium 140 mmol/L (137-145)
[2019-10-28] MEDS: FLUTICASONE 110 MCG INHALER INHALATION SCH ×2 (07:46→20:03)
[2019-10-28] MEDS: INSULIN ASPART (NovoLOG) 100 UNIT/ML VIAL SQ SCH ×4 (07:57→20:46)
[2019-10-28] MEDS: DOCUSATE 100 MG CAP PO SCH ×2 (08:01→20:51)
[2019-10-28] MEDS: oxyCODONE ER 10 MG TAB.ER.12H PO SCH ×2 (08:01→20:51)
[2019-10-28] MEDS: GABAPENTIN 300 MG CAP PO SCH ×2 (08:02→20:51)
[2019-10-28] MEDS: PANTOPRAZOLE 40 MG TABLET PO SCH (08:02)
[2019-10-28] MEDS: LISINOPRIL 2.5 MG TAB PO SCH (08:02)
[2019-10-28] MEDS: SERTRALINE 100 MG TAB PO SCH (08:02)
[2019-10-28] MEDS: THEOPHYLLINE 24 HOUR 300 MG CAP.ER.24H PO SCH (08:03)
[2019-10-28] MEDS: FUROSEMIDE 40 MG TAB PO SCH (08:03)
[2019-10-28] MEDS: APIXABAN 5 MG TAB PO SCH ×2 (08:03→20:51)
[2019-10-28] MEDS: metFORMIN 500 MG TAB PO SCH ×2 (08:03→20:51)
[2019-10-28] MEDS: POTASSIUM CHLORIDE ER 20 MEQ TAB.ER PO SCH ×2 (08:03→20:51)
[2019-10-28] MEDS: ASPIRIN 81 MG PO SCH (08:06)
--- NOTE | 2019-10-28 09:49 | P.PN ---
Subjective Progress Note Date: 10/28/19 Principal diagnosis: Status post right hip gamma nail This is a 69 year-old female post right hip gamma nail. This is post-op day 4. The patient was evaluated at the bedside today. The patient denies nausea, vomiting, abdominal pain, shortness of breath, and chest pain this morning. She states her pain is controlled at this time. The patient has been up with physical therapy. We are awaiting skilled rehab placement but discharge was held yesterday by Dr. Rosales due to her acute delirium. Objective - Vital Signs Vital signs: Vital Signs Temp 98.3 F 10/28/19 07:51 Pulse 75 10/28/19 07:51 Resp 15 10/28/19 07:51 BP 125/71 10/28/19 07:51 Pulse Ox 95 10/28/19 07:51 Intake & Output 10/27/19 10/28/19 10/28/19 18:59 06:59 18:59 Intake Total 680 540 390 Output Total 1000 450 Balance -320 90 390 Weight 103.873 kg Intake: Oral 680 540 390 Output: Urine 1000 450 Other: Voiding Method Indwelling Catheter Indwelling Catheter # Voids 1 # Bowel Movements 1 1 - Exam The patient does not appear in acute distress. Alert and orientated x2. D ressing is clean dry and intact. Incision appears fine with no erythema or active drainage. Ezra are in place. Calf is soft and nontender. Good foot and ankle motion without difficulty. Sensation and circulatory status is intact. - Labs CBC & Chem 7: 10/27/19 07:03 10/28/19 06:44 Labs: Abnormal Lab Results - Last 24 Hours (Table) 10/28/19 Range/Units 06:44 BUN 20 H (7-17) mg/dL Magnesium 1.4 L (1.6-2.3) mg/dL Assessment and Plan (1) Status post hip surgery Current Visit: Yes Status: Acute Code(s): Z98.890 - OTHER SPECIFIED POSTPROCEDURAL STATES SNOMED Code(s): 003456304 (2) Fall Current Visit: Yes Status: Acute Code(s): W19.XXXA - UNSPECIFIED FALL, I NITIAL ENCOUNTER SNOMED Code(s): 6221620 (3) Fracture of right hip Current Visit: Yes Status: Acute Priority: Medium Code(s): S72.001A - FRACTURE OF UNSP PART OF NECK OF RIGHT FEMUR, INIT SNOMED Code(s): 324038257 Plan: 1. Continue pain control 2. Anticoagulation with Eliquis per cardiology 3. Continue physical therapy and ambulation 4. Will continue to follow the patient with internal medicine and cardiology. 5. Anticipate discharge to skilled rehab, likely on Wednesday.
[2019-10-28] MEDS ORDERED: Magnesium Replacement Protocol 1 EACH MISC MISCELLANE PRN ×2 (10:40→17:18)
[2019-10-28] MEDS: MAGNESIUM SULFATE-D5W PMX 1 GM in DEXTROSE/WATER 1 100ML.BAG IVPB SCH ×3 (10:56→14:50)
[2019-10-28 11:20] LABS: Glucose,Whole Blood 103 mg/dL (75-99)
[2019-10-28] MEDS: MULTIVITAMINS, THERA 1 EACH TAB PO SCH (12:26)
[2019-10-28] MEDS: LACTATED RINGERS 1,000 ML IV SCH (16:14)
[2019-10-28 17:06] LABS: Glucose,Whole Blood 90 mg/dL (75-99)
--- NOTE | 2019-10-28 19:45 | PN ---
PROGRESS NOTE DATE OF SERVICE: 10/28/2019. This 69-year-old woman who was admitted after a fall and right hip fracture had surgery, but the patient continues to be confused on and off. ECF rehab is being planned. No chest pain. No palpitation. EXAM: Alert and oriented times three. Pulse 72, blood pressure 100/65, respirations 16, temperature 98.4, pulse ox 94% on 3 L. HEENT is conjunctivae normal. Neck: No JVD. CARDIOVASCULAR: S1, S2 muffled. Respiration: Breath sounds diminished in the bases. A few scattered rhonchi and crackles. ABDOMEN is soft, nontender. LEGS status post surgery. Nervous System: No focal deficits. LABS: Potassium 3.2, improved to 3.9, magnesium 1.4. ASSESSMENT: 1. Status post fall and right hip intertrochanteric fracture with right intramedullary hip screw fixation for right intertrochanteric hip fracture. 2. Confusion possibly acute delirium. 3. Gait dysfunction. 4. Severe pain. 5. Hypomagnesemia. 6. Hypokalemia. 7. Coumadin coagulopathy improved. 8. Congestive heart failure acute exacerbation with acute on chronic systolic dysfunction, improved. 9. Chronic obstructive pulmonary disease. 10.History of coronary artery disease and stent. 11.Diabetes mellitus type 2. 12.Hypertension. 13.History of myocardial infarction. 14.History of degenerative joint disease. 15.History of pneumonia. 16.History of cholecystectomy. 17.History of anxiety. 18.Remote history of nicotine dependence. 19.Obesity, body mass of 37. 20.FULL CODE. RECOMMENDATIONS AND DISCUSSION: Recommend to continue current medications. Continue to monitor. Symptomatic treatment. Otherwise at this time, I would recommend resume the home medications with Coumadin. Otherwise, follow the orthopedic Coumadin protocol. PT/INR closely. Guarded prognosis. Further recommendations to follow. MMODL / IJN: [id number] /
[2019-10-28 20:47] LABS: Glucose,Whole Blood 85 mg/dL (75-99)
[2019-10-28] MEDS: METOPROLOL SUCCINATE (ER) 25 MG TAB.ER.24H PO SCH (20:51)
[2019-10-28] MEDS: ATORVASTATIN 40 MG TAB PO SCH (20:51)
[2019-10-28] MEDS: SENNOSIDES-DOCUSATE SODIUM 1 EACH TAB PO SCH (20:51)
[2019-10-29] MEDS: LEVOTHYROXINE 125 MCG TAB PO SCH (02:24)
[2019-10-29] MEDS: HYDROcodone/APAP 7.5-325MG 1 EACH TAB PO PRN ×2 (02:24→16:26)
[2019-10-29 06:46] LABS: Glucose,Whole Blood 83 mg/dL (75-99)
[2019-10-29 07:36] LABS: Anisocytosis Slight; Basophils % (A) 1 %; Eosinophils # (A) 0.2 k/uL (0-0.7); Eosinophils % (A) 3 %; HCT 37.1 % (34.0-46.0); HGB 12.8 gm/dL (11.4-16.0); Lymphocytes # (A) 0.6 k/uL (1.0-4.8); Lymphocytes % (A) 10 %; MCH 28.8 pg (25.0-35.0); MCHC 34.4 g/dL (31.0-37.0); MCV 83.6 fL (80.0-100.0); Monocytes # (A) 0.4 k/uL (0-1.0); Monocytes % (A) 6 %; Neutrophils % (A) 79 %; Platelet Count 217 k/uL (150-450); Poikilocytosis Slight; RBC 4.44 m/uL (3.80-5.40); RDW 16.2 % (11.5-15.5); WBC 6.3 k/uL (3.8-10.6)
[2019-10-29] MEDS: INSULIN ASPART (NovoLOG) 100 UNIT/ML VIAL SQ SCH ×4 (07:38→20:18)
[2019-10-29] MEDS: PANTOPRAZOLE 40 MG TABLET PO SCH (07:46)
[2019-10-29] MEDS: LISINOPRIL 2.5 MG TAB PO SCH (07:46)
[2019-10-29] MEDS: oxyCODONE ER 10 MG TAB.ER.12H PO SCH ×2 (07:46→20:33)
[2019-10-29] MEDS: DOCUSATE 100 MG CAP PO SCH ×2 (07:46→20:33)
[2019-10-29] MEDS: APIXABAN 5 MG TAB PO SCH ×2 (07:46→20:34)
[2019-10-29] MEDS: GABAPENTIN 300 MG CAP PO SCH ×2 (07:46→20:33)
[2019-10-29] MEDS: metFORMIN 500 MG TAB PO SCH ×2 (07:47→20:34)
[2019-10-29] MEDS: FUROSEMIDE 40 MG TAB PO SCH (07:47)
[2019-10-29] MEDS: ASPIRIN 81 MG PO SCH (07:47)
[2019-10-29] MEDS: POTASSIUM CHLORIDE ER 20 MEQ TAB.ER PO SCH ×2 (07:47→20:34)
[2019-10-29] MEDS: SERTRALINE 100 MG TAB PO SCH (07:47)
[2019-10-29] MEDS: THEOPHYLLINE 24 HOUR 300 MG CAP.ER.24H PO SCH (07:48)
[2019-10-29 07:54] LABS: African American GFR (CKD) >90 (>60 ml/min/1.73 sqM); Anion Gap 7 mmol/L; Blood Urea Nitrogen 16 mg/dL (7-17); Calcium 8.3 mg/dL (8.4-10.2); Carbon Dioxide 29 mmol/L (22-30); Chloride 101 mmol/L (98-107); Glucose 74 mg/dL (74-99); Magnesium 1.6 mg/dL (1.6-2.3); Non-African American GFR(CKD) >90 (>60 ml/min/1.73 sqM); Potassium 3.8 mmol/L (3.5-5.1); Sodium 137 mmol/L (137-145)
[2019-10-29] MEDS: FLUTICASONE 110 MCG INHALER INHALATION SCH ×2 (08:04→20:17)
--- NOTE | 2019-10-29 11:47 | P.PN ---
Subjective Progress Note Date: 10/29/19 Principal diagnosis: Status post right hip gamma nail This is a 69 year-old female post right hip gamma nail. This is post-op day 5. The patient was evaluated in the recliner chair at the bedside today. The patient denies nausea, vomiting, abdominal pain, shortness of breath, and chest pain this morning. She states her pain is controlled at this time. The patient has been up with physical therapy. We are awaiting skilled rehab placement but discharge was held on Wednesday by Dr. Rosales due to her acute delirium. Her confusion appears to be improving. No new complaints. Objective - Vital Signs Vital signs: Vital Signs Temp 98.4 F 10/29/19 07:18 Pulse 76 10/29/19 07:18 Resp 16 10/29/19 07:30 BP 106/64 10/29/19 07:18 Pulse Ox 91 L 10/29/19 07:18 Intake & Output 10/28/19 10/29/19 10/29/19 18:59 06:59 18:59 Intake Total 530 570 Output Total 900 400 Balance -370 170 Intake: Intake, IV Titration 30 Amount Lactated Ringers 1,000 ml 30 @ 20 mls/hr IV .Q24H [facility] Rx#:[id number] Oral 530 540 Output: Urine 900 400 Other: Voiding Method Indwelling Catheter Indwelling Catheter Indwelling Catheter # Bowel Movements 1 - Exam The patient does not appear in acute distress. Alert and orientated x3. Dressing is clean dry and intact. Incision appears fine with no erythema or active drainage. Ezra are in place. Calf is soft and nontender. Good foot and ankle motion without difficulty. Sensation and circulatory status is intact. - Labs CBC & Chem 7: 10/29/19 06:36 10/29/19 06:36 Labs: Abnormal Lab Results - Last 24 Hours (Table) 10/29/19 10/29/19 Range/Units 06:36 06:36 RDW 16.2 H (11.5-15.5) % Lymphocytes # 0.6 L (1.0-4.8) k/uL Calcium 8.3 L (8.4-10.2) mg/dL Assessment and Plan (1) Status post hip surgery Current Visit: Yes Status: Acute Code(s): Z98.890 - OTHER SPECIFIED POSTP ROCEDURAL STATES SNOMED Code(s): 969714739 (2) Fall Current Visit: Yes Status: Acute Code(s): W19.XXXA - UNSPECIFIED FALL, INITIAL ENCOUNTER SNOMED Code(s): 1431073 (3) Fracture of right hip Current Visit: Yes Status: Acute Priority: Medium Code(s): S72.001A - FRACTURE OF UNSP PART OF NECK OF RIGHT FEMUR, INIT SNOMED Code(s): 442015348 Plan: 1. Continue pain control 2. Anticoagulation with Eliquis per cardiology 3. Continue physical therapy and ambulation 4. Will continue to follow the patient with internal medicine and cardiology. 5. Anticipate discharge to skilled rehab, likely on Wednesday.
[2019-10-29 11:56] LABS: Glucose,Whole Blood 112 mg/dL (75-99)
[2019-10-29] MEDS: MULTIVITAMINS, THERA 1 EACH TAB PO SCH (12:01)
[2019-10-29] MEDS: LACTATED RINGERS 1,000 ML IV SCH (16:25)
[2019-10-29 17:08] LABS: Glucose,Whole Blood 97 mg/dL (75-99)
--- NOTE | 2019-10-29 20:14 | PN ---
PROGRESS NOTE DATE OF SERVICE: 10/29/2019. This 69-year-old woman was admitted after right hip fracture and surgery, is being closely monitored. Patient also had confusion and other multiple medical problems including delirium also. No chest pain. No palpitations. No fever. ECF rehab is being planned on Wednesday. EXAM: Alert and oriented. Pulse 77, blood pressure 108/60, respiration 16, temperature 98.2, pulse ox 98% on room air. skin HEENT: Conjunctivae normal. Oral mucosa moist. NECK: No jugular venous distention. No lymph node enlargement. CARDIOVASCULAR: S1, S2. RESPIRATORY: Diminished breath sounds at the bases. No rhonchi, no crackles. ABDOMEN: Soft, nontender. LEGS: Status post surgery on the right side. NERVOUS SYSTEM: No focal deficits. LABS: CBC within normal limits and CMP noted. ASSESSMENT: 1. Status post fall and right hip intertrochanteric fracture with right intramedullary hip screw fixation for right intertrochanteric fracture. 2. Confusion, possible acute delirium. 3. Gait dysfunction. 4. Severe pain. 5. Hypomagnesemia. 6. Hypokalemia. 7. Coumadin coagulopathy, improved. 8. Congestive heart failure acute exacerbation with acute on chronic systolic dysfunction, improved. 9. Chronic obstructive pulmonary disease. 10.History of coronary artery disease and stent. 11.Diabetes mellitus type 2. 12.Hypertension. 13.History of myocardial infarction. 14.History of degenerative joint disease. 15.History of pneumonia. 16.History of cholecystectomy. 17.History of anxiety. 18.Remote history of nicotine dependence. 19.Obesity, body mass index of 37. 20.FULL CODE. RECOMMENDATIONS AND DISCUSSION: Recommend to continue current medications, continue to monitor, continue symptomatic treatment. Otherwise, at this time I recommend continue rest of medications, DVT prophylaxis, PT/OT evaluation, possible ECF rehab. Guarded prognosis. Further recommendations to follow. MMODL / IJN: [id number] /
[2019-10-29 20:16] LABS: Glucose,Whole Blood 101 mg/dL (75-99)
[2019-10-29] MEDS: ATORVASTATIN 40 MG TAB PO SCH (20:33)
[2019-10-29] MEDS: SENNOSIDES-DOCUSATE SODIUM 1 EACH TAB PO SCH (20:34)
[2019-10-29] MEDS: METOPROLOL SUCCINATE (ER) 25 MG TAB.ER.24H PO SCH (20:34)
[2019-10-30] MEDS: HYDROcodone/APAP 7.5-325MG 1 EACH TAB PO PRN ×2 (05:49→15:23)
[2019-10-30] MEDS: LEVOTHYROXINE 125 MCG TAB PO SCH (05:50)
[2019-10-30 07:05] LABS: Glucose,Whole Blood 86 mg/dL (75-99)
[2019-10-30 07:31] LABS: African American GFR (CKD) >90 (>60 ml/min/1.73 sqM); Anion Gap 8 mmol/L; Blood Urea Nitrogen 14 mg/dL (7-17); Calcium 8.5 mg/dL (8.4-10.2); Carbon Dioxide 27 mmol/L (22-30); Chloride 103 mmol/L (98-107); Glucose 86 mg/dL (74-99); Non-African American GFR(CKD) >90 (>60 ml/min/1.73 sqM); Potassium 3.8 mmol/L (3.5-5.1); Sodium 138 mmol/L (137-145)
[2019-10-30] MEDS: ASPIRIN 81 MG PO SCH (08:00)
[2019-10-30] MEDS: APIXABAN 5 MG TAB PO SCH (08:00)
[2019-10-30] MEDS: LISINOPRIL 2.5 MG TAB PO SCH (08:00)
[2019-10-30] MEDS: oxyCODONE ER 10 MG TAB.ER.12H PO SCH (08:00)
[2019-10-30] MEDS: PANTOPRAZOLE 40 MG TABLET PO SCH (08:00)
[2019-10-30] MEDS: metFORMIN 500 MG TAB PO SCH (08:00)
[2019-10-30] MEDS: MULTIVITAMINS, THERA 1 EACH TAB PO SCH (08:00)
[2019-10-30] MEDS: FUROSEMIDE 40 MG TAB PO SCH (08:00)
[2019-10-30] MEDS: INSULIN ASPART (NovoLOG) 100 UNIT/ML VIAL SQ SCH ×2 (08:01→11:56)
[2019-10-30] MEDS: DOCUSATE 100 MG CAP PO SCH (08:01)
[2019-10-30] MEDS: SERTRALINE 100 MG TAB PO SCH (08:01)
[2019-10-30] MEDS: GABAPENTIN 300 MG CAP PO SCH (08:01)
[2019-10-30] MEDS: POTASSIUM CHLORIDE ER 20 MEQ TAB.ER PO SCH (08:01)
[2019-10-30] MEDS: THEOPHYLLINE 24 HOUR 300 MG CAP.ER.24H PO SCH (08:02)
[2019-10-30 08:10] VITALS: BP 161/91; RESP 12; TEMP 98
[2019-10-30] MEDS: FLUTICASONE 110 MCG INHALER INHALATION SCH (09:09)
[2019-10-30 09:15] VITALS: PULSE 92
--- NOTE | 2019-10-30 09:30 | P.PN ---
Subjective Progress Note Date: 10/30/19 Principal diagnosis: Right IT hip fracture Patient is seen at bedside this morning. She is postop from gamma nail for right IT fracture performed on 10/24/2019. She has pain at the surgical site as expected but denies any new complaints. She denies numbness, tingling or calf p ain. Review of systems is negative for fever, chills, chest pain, shortness of breath or other Objective - Vital Signs Vital signs: Vital Signs Temp 98 F 10/30/19 08:09 Pulse 92 10/30/19 09:24 Resp 12 10/30/19 08:09 BP 161/91 10/30/19 08:09 Pulse Ox 92 L 10/30/19 09:13 Intake & Output 10/29/19 10/30/19 10/30/19 18:59 06:59 18:59 Intake Total 120 Output Total 900 1975 Balance - -1974 120 Weight 103.8 kg Intake: Oral 120 Output: Urine 900 1975 Uretheral (Rosa) 800 Other: Voiding Method Indwelling Catheter Indwelling Catheter - Exam Inspection reveals benign surgical wounds with paris in place. There is no active bleeding or drainage. Neurovascular status is intact throughout the lower extremity with motor and sensation fully intact. Calf is soft and nontender. 2+ dorsalis pedis pulse and less than 2 second cap refill is present. - Constitutional General appearance: Present: no acute distress - Labs CBC & Chem 7: 10/29/19 06:36 10/30/19 06:28 Labs: Abnormal Lab Results - Last 24 Hours (Table) 10/29/19 10/29/19 Range/Units 11:37 20:14 POC Glucose (mg/dL) 112 H 101 H (75-99) mg/dL Assessment and Plan (1) Fracture of right hip Narrative/Plan: She will continue with routine postop orthopedic protocol including pain management, wound care, PT, DVT prophylaxis and medical management. She may transfer to [facility] from ortho standpoint and when ok with IM. She is to follow up in office as outpatient. Current Visit: Yes Status: Acute Priority: Medium Code(s): S72.001A - FRACTURE OF UNSP PART OF NECK OF RIGHT FEMUR, INIT SNOMED Code(s): 860763349 Time with Patient: Less than 30
[2019-10-30 11:46] LABS: Glucose,Whole Blood 93 mg/dL (75-99)
--- NOTE | 2019-10-30 12:13 | P.DS ---
Providers Date of admission: 10/20/19 17:07 Expected date of discharge: 10/30/19 Attending physician: Any Rosales Consults: 10/20/19 16:58 Consult Physician Urgent Consulting Provider: Raman Urbano Reason/Comments: right hip fracture Do you want consulting provider notified?: Yes 10/21/19 Consult Physician Routine Consulting Provider: [facility] Reason/Comments: surgical clearance Do you want consulting provider notified?: Yes Primary care physician: Brant Baca Hospital Course: Final diagnosis Status post fall and right hip intertrochanteric fracture with right intramedullary hip screw fixation for right intertrochanteric fracture Confusion, possible acute delirium Gait dysfunction Severe pain Hypomagnesemia Hypokalemia Coumadin coagulopathy, improved Congestive heart failure acute exacerbation with acute on chronic systolic dysfunction, improved Chronic obstructive pulmonary disease History of coronary artery disease and stent Diabetes mellitus type 2 Hypertension History of myocardial infarction History of degenerative joint disease and history of pneumonia next line history of cholecystectomy Earth history of anxiety Remote history of nicotine dependence Obesity, body mass index of 37 Full code Discharge disposition Patient is being discharged in a stable condition with guarded prognosis to [facility] for continued PT/OT therapy. Patient will follow-up with orthopedic clinic Dr. Raman Urbano in one week as discussed and scheduled. Patient will also follow-up with her primary care provider Dr. Brant Baca upon discharge. Total time taken is 35 minutes. History of present illness This is a 69-year-old female who was recently admitted for right hip fracture and underwent a gamma nail insertion for right IT hip fracture and was being closely monitored. During hospitalization patient did have some brief episodes of shortness of breath and requiring some oxygen. Patient is currently on room air and having no shortness of breath. Patient denies any chest pain or palpitations at this time. Patient has been afebrile. Patient denies any nausea or vomiting and is tolerating diet. Patient will continue to work with PT/OT therapy for strength and mobility and will follow-up with Dr. Raman Urbano in the outpatient setting next week. Discussed with the patient at length about continuing to use incentive spirometer at least 10 times every hour while awake along with coughing and deep breathing. Patient will continue with a short course of oral antibiotics in the form of Ceftin for the next 3 days and then may discontinue. Patient will need to follow-up with primary care provider upon discharge. Patient was started on Eliquis and will continue this in the outpatient setting. Patient will need repeat labs in 2-3 days to monitor electrolytes. Currently patient's condition is stable like to go to the [facility] today. Patient will be going to [facility] today. Guarded prognosis. On exam vital signs are stable. Temp is 98F, pulse is 90, respirations are 12, blood pressure 161/91, oxygen saturation is 95% on room air. Cardio S1, S2 are muffled. Respiratory system shows diminished breath sounds at the bases with no wheezing or crackles noted. Abdomen is soft and nontender. Nervous system shows no focal deficits with mild diffuse weakness. Please refer to medication reconciliation sheet for a list of medications. Patient Condition at Discharge: Fair Plan - Discharge Summary Discharge Rx Participant: Yes New Discharge Prescriptions: New Apixaban [Eliquis] 5 mg PO BID #60 tab Docusate [Colace] 100 mg PO BID #60 capsule HYDROcodone/APAP 5-325MG [[place] 5-325] 1 tab PO Q4HR PRN #42 tab PRN Reason: Pain Aspirin 81 mg PO DAILY chew Cefuroxime Axetil [Ceftin] 500 mg PO BID 3 Days #6 tab Potassium Chloride ER [K-Dur 20] 20 meq PO BID tab.er.prt Furosemide [Lasix] 40 mg PO DAILY tab Multivitamins, Thera [Multivitamin (formulary)] 1 each PO DAILY@1200 tab Sennosides-Docusate Sodium [Senokot-S] 2 each PO HS tab Acetaminophen Tab [Tylenol] 650 mg PO Q6HR PRN tab PRN Reason: Mild Pain Or Fever > 100.5 Continue Albuterol Sulfate [Proair Hfa] 2 puff INHALATION RT-Q6H PRN PRN Reason: Shortness Of Breath Levothyroxine Sodium 250 mcg PO SUTUTHSA Fluticasone Propionate [Flovent Diskus] 1 puff INHALATION RT-BID Theophylline 12 Hour [Nba-Dur] 300 mg PO BID Sertraline [Zoloft] 100 mg PO DAILY Omeprazole 40 mg PO DAILY metFORMIN HCL [Glucophage] 500 mg PO BID Metoprolol Succinate [Toprol XL] 25 mg PO HS Lisinopril [Zestril] 2.5 mg PO DAILY Levothyroxine Sodium 125 mcg PO MOWEFR Gemfibrozil [Lopid] 600 mg PO BID Atorvastatin [Lipitor] 40 mg PO HS Gabapentin [Neurontin] 300 mg PO BID Discontinued Warfarin [Coumadin] 5 mg PO SUMOWEFR Warfarin [Coumadin] 7.5 mg PO TUTHSA Furosemide [Lasix] 20 mg PO DAILY Amiodarone [Cordarone] 200 mg PO DAILY Discharge Medication List Albuterol Sulfate [Proair Hfa] 2 puff INHALATION RT-Q6H PRN 10/20/19 [History] Atorvastatin [Lipitor] 40 mg PO HS 10/20/19 [History] Fluticasone Propionate [Flovent Diskus] 1 puff INHALATION RT-BID 10/20/19 [History] Gabapentin [Neurontin] 300 mg PO BID 10/20/19 [History] Gemfibrozil [Lopid] 600 mg PO BID 10/20/19 [History] Levothyroxine Sodium 125 mcg PO MOWEFR 10/20/19 [History] Levothyroxine Sodium 250 mcg PO SUTUTHSA 10/20/19 [History] Lisinopril [Zestril] 2.5 mg PO DAILY 10/20/19 [History] Metoprolol Succinate [Toprol XL] 25 mg PO HS 10/20/19 [History] Omeprazole 40 mg PO DAILY 10/20/19 [History] Sertraline [Zoloft] 100 mg PO DAILY 10/20/19 [History] Theophylline 12 Hour [Nba-Dur] 300 mg PO BID 10/20/19 [History] metFORMIN HCL [Glucophage] 500 mg PO BID 10/20/19 [History] Apixaban [Eliquis] 5 mg PO BID #60 tab 10/24/19 [Rx] Docusate [Colace] 100 mg PO BID #60 capsule 10/27/19 [Rx] HYDROcodone/APAP 5-325MG [[place] 5-325] 1 tab PO Q4HR PRN #42 tab 10/27/19 [Rx] Acetaminophen Tab [Tylenol] 650 mg PO Q6HR PRN tab 10/30/19 [Rx] Aspirin 81 mg PO DAILY chew 10/30/19 [Rx] Cefuroxime Axetil [Ceftin] 500 mg PO BID 3 Days #6 tab 10/30/19 [Rx] Furosemide [Lasix] 40 mg PO DAILY tab 10/30/19 [Rx] Multivitamins, Thera [Multivitamin (formulary)] 1 each PO DAILY@1200 tab 10/30/19 [Rx] Potassium Chloride ER [K-Dur 20] 20 meq PO BID tab.er.prt 10/30/19 [Rx] Sennosides-Docusate Sodium [Senokot-S] 2 each PO HS tab 10/30/19 [Rx] Follow up Appointment(s)/Referral(s): Brant Baca MD [Primary Care Provider] - 1-2 days (After ECF) Raman Urbano MD [STAFF PHYSICIAN] - 11/07/19 12:50 pm (New patient paperwork will arrive in the mail before this appointment) Ambulatory/Diagnostic Orders: Magnesium [LAB.AMB] Time Frame: 2 Days, Location: None Selected Activity/Diet/Wound Care/Special Instructions: Patient is going to [facility] for continue PT/OT therapy continue current antibiotics and may discontinue after 3 days continue current diet follow up with primary care provider upon discharge repeat labs in 2-3 days Activity as tolerated PT WANTS FLU VACCINE AT DC Touchdown weightbearing with walker Lopez out at post op day 10-14. (November 03) Take meds as directed F/U in office in [address] Urbano Keep wounds clean and dry Discharge Disposition: TRANSFER TO SNF/ECF
== END 2019-10-30 15:36 | DRG 480 ==
LOC: EC 16:29 → 4SSUR 17:07
PROVIDERS: ADMIT Hospitalist; ATTEND Hospitalist
PROC: 0QS636Z Reposition Right Upper Femur with Intramedullary Internal Fixation Device, Percutaneous Approach (ICD-10-PCS; principal; 2019-10-24 11:00)
DX: S72.141A Displaced intertrochanteric fracture of right femur, initial encounter for closed fracture (principal); I50.23 Acute on chronic systolic (congestive) heart failure; R44.3 Hallucinations, unspecified; J44.9 Chronic obstructive pulmonary disease, unspecified; E11.9 Type 2 diabetes mellitus without complications; E78.5 Hyperlipidemia, unspecified; E83.42 Hypomagnesemia; E87.6 Hypokalemia; F41.9 Anxiety disorder, unspecified; I11.0 Hypertensive heart disease with heart failure; I25.10 Atherosclerotic heart disease of native coronary artery without angina pectoris; I25.5 Ischemic cardiomyopathy; R41.0 Disorientation, unspecified; M19.90 Unspecified osteoarthritis, unspecified site; I48.0 Paroxysmal atrial fibrillation; I27.20 Pulmonary hypertension, unspecified; W18.30XA Fall on same level, unspecified, initial encounter; E66.9 Obesity, unspecified; R26.9 Unspecified abnormalities of gait and mobility; I08.1 Rheumatic disorders of both mitral and tricuspid valves; R79.1 Abnormal coagulation profile; R31.29 Other microscopic hematuria; Z79.01 Long term (current) use of anticoagulants; Z79.51 Long term (current) use of inhaled steroids; Z88.8 Allergy status to other drugs, medicaments and biological substances; I25.2 Old myocardial infarction; Z79.84 Long term (current) use of oral hypoglycemic drugs; Z79.899 Other long term (current) drug therapy; Z87.01 Personal history of pneumonia (recurrent); Z87.891 Personal history of nicotine dependence; Z90.49 Acquired absence of other specified parts of digestive tract; Z95.5 Presence of coronary angioplasty implant and graft; Z90.710 Acquired absence of both cervix and uterus; Z82.49 Family history of ischemic heart disease and other diseases of the circulatory system; Z83.3 Family history of diabetes mellitus; Z68.37 Body mass index [BMI] 37.0-37.9, adult; Z98.890 Other specified postprocedural states; Y92.009 Unspecified place in unspecified non-institutional (private) residence as the place of occurrence of the external cause; Z80.52 Family history of malignant neoplasm of bladder; Z80.42 Family history of malignant neoplasm of prostate; Z79.890 Hormone replacement therapy
CPT/HCPCS: 36415; 71045; 73501; 73502; 80048; 80053; 80061; 81001; 83036; 83735; 83880; 84439; 84443; 85025; 85610; 93005; 93306; 94640; 94760; 96374; 99284